=== PATIENT | female | born 1955 | race Caucasian/White ===

== ENCOUNTER 2020-05-06 00:37 | Inpatient (IN) ==
[2020-05-06] MEDS ORDERED: IOPAMIDOL 100 ML BOTTLE IV ONE (00:38)
[2020-05-06] MEDS ORDERED: FUROSEMIDE 40 MG/4 ML VIAL IV ONE ×3 (00:56→06:00)
--- NOTE | 2020-05-06 01:05 | Emergency Department Note ---
SOB HPI General Chief Complaint: Shortness of Breath/Dyspnea Mode of arrival: ambulatory History of Present Illness HPI Narrative: Narrative:64-year-old female comes in for 2-hour history of shortness of breath. Her found her Having nausea and vomiting with diaphoresis In the bathroom. No fever, she is cool and clammy.She is having some chest pressure but no true chest pain. No trouble urinating or with a bowel movement. She was initially sick about a week ago on 04/24/2020 but then she gradually got better as the week progressed but then tonight suddenly got worse again. I reviewed the notes from 04/24/2021 along with the studies. Her is concerned about a possible PE. She appears very ill and her gave me most of the history Her notes that she had a recent heart cath several months ago which was negative. Her heart doctor is Dr. Rhodes at [place].She has a known history of aortic insufficiency and diastolic heart failure Related Data Home Medications Medication Instructions Recorded Confirmed multivitamin 1 tab PO QDAY 08/16/15 05/06/20 levothyroxine 125 mcg capsule 137 mcg PO QDAY cap 07/16/17 05/06/20 metoprolol succinate 50 mg 50 mg PO BID 05/25/19 05/06/20 tablet,extended release 24 hr omeprazole 20 mg capsule,delayed 20 mg PO QDAY 05/25/19 05/06/20 release furosemide 20 mg PO DAILY 05/06/20 05/06/20 Previous Rx's Medication Instructions Recorded duloxetine 30 mg capsule,delayed 60 mg PO QDAY #60 cap 02/18/20 release cevimeline 30 mg capsule 1 cap PO TID #90 cap 02/29/20 hydroxychloroquine 200 mg tablet See Rx Instructions .ROUTE 02/29/20 .COMPLEX #180 tab diclofenac sodium 1 % topical gel See Rx Instructions .ROUTE 04/05/20 .COMPLEX #100 g ondansetron HCl [Zofran] 8 mg PO Q8H PRN #10 tab 04/24/20 Allergies Allergy/AdvReac Type Severity Reaction Status Date / Time codeine AdvReac Intermediate Hives Verified 04/24/20 07:59 gabapentin AdvReac Agitated Verified 04/24/20 07:59 Review of Systems ROS ROS Narrative: Narrative: All systems ED: reviewed and negative except as stated. PFSH Narrative Patient History Narrative: Narrative: Medical/Surgical/Family History All Active Problems (Updated 05/06/20 @ 02:01 by Madi Anguiano MD) CHF (congestive heart failure) (Acute) Sprain and strain of wrist (Acute) Asthma exacerbation (Acute) Headache, migraine (Acute) Restrictive lung disease (Acute) Headache (Acute) Polyarthralgia (Acute) Neck pain (Acute) Shingles (Acute) Osteoarthritis (Acute) Left knee pain (Chronic) Encounter for long-term current use of other high-risk medications (Acute) Trochanteric bursitis (Acute) Sjogren's syndrome (Acute) Encounter for long-term (current) use of other high-risk medications (Chronic) Rheumatoid arthritis (Acute) Rheumatic disease (Chronic) Disorder of skin and subcutaneous tissue (Chronic) Sicca syndrome (Chronic) Rotator cuff syndrome (Chronic) Myalgia and myositis (Chronic) Bursitis (Chronic) Generalized osteoarthritis (Chronic) Inflammatory polyarthropathy (Chronic) Hx of tonsillectomy (Chronic) History of appendectomy (Chronic) History of lymph node biopsy (Chronic) History of thoracotomy (Chronic) History of thoracic outlet syndrome (Chronic) Hyperlipidemia (Chronic) Hypothyroidism (Chronic) Migraine headache (Chronic) Radiculopathy (Chronic) Thoracic outlet syndrome (Chronic) Vertigo (Chronic) Von Willebrand factor autoantibody present (Chronic) Hodgkin lymphoma (Chronic) Fibromyalgia (Acute) Polyarticular arthritis (Chronic) Foot pain (Chronic) Knee pain (Chronic) Hand pain (Chronic) Medical History (Updated 05/06/20 @ 02:01 by Madi Anguiano MD) Breast implant in situ (Acute) Bursitis (Chronic) De Quervain's syndrome (tenosynovitis) (Suspected) Disorder of skin and subcutaneous tissue (Chronic) Encounter for long-term (current) use of other high-risk medications (Chronic) Encounter for long-term current use of other high-risk medications (Acute) Fibromyalgia (Acute) Foot pain (Chronic) Generalized osteoarthritis (Chronic) Hand pain (Chronic) Headache (Acute) Hodgkin lymphoma (Chronic) Hyperlipidemia (Chronic) Hypothyroidism (Chronic) Inflammatory polyarthropathy (Chronic) Knee pain (Chronic) Left knee pain (Chronic) Migraine headache (Chronic) Myalgia and myositis (Chronic) Neck pain (Acute) Osteoarthritis (Acute) Polyarthralgia (Acute) Polyarticular arthritis (Chronic) Radiculopathy (Chronic) Restrictive lung disease (Acute) Rheumatic disease (Chronic) Rheumatoid arthritis (Acute) Rotator cuff syndrome (Chronic) Shingles (Acute) Sicca syndrome (Chronic) Sjogren's syndrome (Acute) Thoracic outlet syndrome (Chronic) Trochanteric bursitis (Acute) Vertigo (Chronic) Von Willebrand factor autoantibody present (Chronic) Surgical History History of appendectomy (Chronic) 1972 History of lymph node biopsy (Chronic) 1996 History of thoracic outlet syndrome (Chronic) 2008 History of thoracotomy (Chronic) 1998 Hx of tonsillectomy (Chronic) 1972 Family History Grandmother Asthma Mother Malignant neoplasm Daughter Non-specific colitis Father Hypertension Brother Cerebrovascular accident (CVA) Sister Malignant neoplasm Social History Smoking Status: Never smoker Alcohol Intake Frequency: a few times a month Substance Use: does not use Exam Narrative Narrative: Narrative:Diaphoretic ill-appearing. Normocephalic atraumatic. Conjunctive are clear sclerae white nonicteric. No nasal discharge congestion. She is hypoxic and now is requiring oxygen via nasal cannula 2 and half liters. Oropharynx is pink and moist. Neck is supple without lymphadenopathy thyromegaly. Heart is regular rate and rhythm no murmur appreciated. Lungs with coarse rales and wheezes - Productive cough noted. Abdomen soft nontender nondistended. No pedal edema. +2 posterior tibial pulse. Course Vital Signs Vital signs: Vital Signs Temperature 94.6 F L 05/06/20 00:37 Pulse Rate 102 H 05/06/20 00:37 Respiratory Rate 19 05/06/20 00:37 Blood Pressure 164/79 05/06/20 00:37 Pulse Oximetry (%) 93 05/06/20 00:37 Temperature 95.5 F L 05/06/20 03:47 Pulse Rate 90 05/06/20 03:47 Respiratory Rate 20 05/06/20 03:47 Blood Pressure 136/76 05/06/20 03:33 Pulse Oximetry (%) 100 05/06/20 03:47 MDM MDM Narrative Medical decision making narrative: Narrative:Sudden onset shortness of breath with diaphoresis nausea and vomiting. Differential diagnosis includes Pulmonary emboli versus Pneumonia versus flash pulmonary edema/CHF exacerbation. She does not have a history of COPD or significant asthma, But she does have cancer history as well as autoimmune disease history Which puts her at higher risk for blood clot. Ordered laboratory and chest x-ray. Chest x-ray was unrevealing except for possible pneumonia. CT angiogram was ordered follow-up. EKG similarly shows left bundle branch block but this is not new.Start DuoNeb treatment along with continued nasal cannula oxygen. Furosemide [address] angiogram shows significant CHF exacerbation. This is new in the setting of recent heart cath several months ago which was okay. She had known diastolic dysfunction history as well as previous aortic insufficiency. We will put in a temperature probe Bone to monitor ins and outs. Troponin is normal. However given the scenario we will repeat that And get a second set At approximately 2 and half hours after this episode started- The first troponin was done approximately 1 hour after the episode Repeat troponin was again normal. Discussed scenario with Dr. Morelos, our hospitalist. He agreed to accept patient. Transition Orders written by me Lab Data Lab results reviewed: Yes I reviewed the patient's lab results. Result diagrams: 05/06/20 01:30 05/06/20 01:30 Labs: Lab Results 05/06/20 05/06/20 05/06/20 Range/Units 01:30 01:30 01:30 WBC 10.2 (4.50-11.00) K/mcL RBC 4.48 (3.59-5.38) M/mcL Hgb 13.7 (11.2-15.7) g/dL Hct 40.1 (34.1-44.9) % POC Hct (36.0-48.0) % MCV 89.5 (80.0-100.0) fL MCH 30.6 (26.0-34.0) pg MCHC 34.2 (31.0-36.0) g/dL RDW 13.3 (11.5-14.5) % Plt Count 402 (140-440) K/mcL MPV 9.7 (7.4-10.4) fL Gran % 59.8 (38.0-78.0) % Lymph % (Auto) 29.0 (15.5-49.0) % Union % (Auto) 7.1 (1.0-12.0) % Eos % (Auto) 3.8 (0.0-7.0) % Baso % (Auto) 0.3 (0.0-2.0) % Gran # 6.07 (1.80-8.00) K/mcL Lymph # (Auto) 2.94 (1.50-4.80) K/mcL Union # (Auto) 0.72 (0.10-0.90) K/mcL Eos # (Auto) 0.39 (0.00-0.70) K/mcL Baso # (Auto) 0.03 (0.00-0.30) K/mcL VBG Lactic Acid 1.3 (0.5-2.0) mmol/L POC Sodium (133-145) mmol/L Sodium 131 L (133-145) mmol/L POC Potassium (3.3-5.1) mmol/L Potassium 3.6 (3.3-5.1) mmol/L POC Chloride (96-108) mmol/L Chloride 95 L (96-108) mmol/L Carbon Dioxide 20 L (22-30) mmol/L POC Total CO2 (22-30) mmol/L Anion Gap 16.0 (8-16) POC BUN (8-23) mg/dl BUN 16 (8-23) mg/dl Creatinine 0.9 (0.6-1.1) mg/dl POC Creatinine (0.6-1.1) mg/dl GFR Calculation 68 Glucose 143 H (70-105) mg/dL POC Glucose (70-105) mg/dL Calcium 9.3 (8.6-10.4) mg/dl POC WB Ioniz Calcium (1.16-1.32) mmol/L Total Bilirubin 0.3 (0.0-1.0) mg/dL AST 33 (0-37) U/l ALT 26 (0-40) U/l Alkaline Phosphatase 102 (39-117) U/L Troponin T (0-0.03) ng/ml NT-Pro-B Natriuret Pep 242.6 H (0-125) pg/ml Total Protein 7.1 (5.9-8.4) gm/dL Albumin 4.3 (3.2-5.2) gm/dL Globulin 2.8 (2.2-3.7) gm/dL Albumin/Globulin Ratio 1.5 (1.0-2.3) 05/06/20 05/06/20 05/06/20 Range/Units 01:30 01:30 03:00 WBC (4.50-11.00) K/mcL RBC (3.59-5.38) M/mcL Hgb (11.2-15.7) g/dL Hct (34.1-44.9) % POC Hct 43.0 (36.0-48.0) % MCV (80.0-100.0) fL MCH (26.0-34.0) pg MCHC (31.0-36.0) g/dL RDW (11.5-14.5) % Plt Count (140-440) K/mcL MPV (7.4-10.4) fL Gran % (38.0-78.0) % Lymph % (Auto) (15.5-49.0) % Union % (Auto) (1.0-12.0) % Eos % (Auto) (0.0-7.0) % Baso % (Auto) (0.0-2.0) % Gran # (1.80-8.00) K/mcL Lymph # (Auto) (1.50-4.80) K/mcL Union # (Auto) (0.10-0.90) K/mcL Eos # (Auto) (0.00-0.70) K/mcL Baso # (Auto) (0.00-0.30) K/mcL VBG Lactic Acid (0.5-2.0) mmol/L POC Sodium 131 L (133-145) mmol/L Sodium (133-145) mmol/L POC Potassium 3.4 (3.3-5.1) mmol/L Potassium (3.3-5.1) mmol/L POC Chloride 99 (96-108) mmol/L Chloride (96-108) mmol/L Carbon Dioxide (22-30) mmol/L POC Total CO2 22 (22-30) mmol/L Anion Gap (8-16) POC BUN 18 (8-23) mg/dl BUN (8-23) mg/dl Creatinine (0.6-1.1) mg/dl POC Creatinine 0.8 (0.6-1.1) mg/dl GFR Calculation Glucose (70-105) mg/dL POC Glucose 145 H (70-105) mg/dL Calcium (8.6-10.4) mg/dl POC WB Ioniz Calcium 1.13 L (1.16-1.32) mmol/L Total Bilirubin (0.0-1.0) mg/dL AST (0-37) U/l ALT (0-40) U/l Alkaline Phosphatase (39-117) U/L Troponin T < 0.01 < 0.01 (0-0.03) ng/ml NT-Pro-B Natriuret Pep (0-125) pg/ml Total Protein (5.9-8.4) gm/dL Albumin (3.2-5.2) gm/dL Globulin (2.2-3.7) gm/dL Albumin/Globulin Ratio (1.0-2.3) Radiology Data Radiology results reviewed: Yes I reviewed the patient's radiology results. Radiology results narrative: Chest x-ray shows density bilateral lower lungs. CHF versus Pneumonia. CT angiogram Of the chest was ordered CT angiogram shows no Emboli but she does have significant CHF exacerbation which accounts for her shortness of breath EKG Data EKG #1: EKG attestation: Yes I reviewed and interpreted this EKG. EKG results narrative: EKG shows a left bundle branch block with 1 PVC. I do not see evidence of ACS. Her EKG from last week looked similar With left bu ndle branch block but I do not have prior For comparison Discharge Plan Patient/Caregiver Discharge Instructions Pt seen by COST SPECIALIST/PA only: No Clinical Impression: CHF (congestive heart failure) Qualifiers: Heart failure type: combined systolic and diastolic Heart failure chronicity: acute on chronic Qualified Code(s): I50.43 - Acute on chronic combined systolic (congestive) and diastolic (congestive) heart failure Patient Disposition: Xfer As Inpt ([facility]) Condition: Serious Follow up with: Myra Arias MD [Primary Care Provider] - Prescriptions: No Action duloxetine 30 mg capsule,delayed release(DR/EC) 60 mg PO QDAY Qty: 60 RF: 3 cevimeline 30 mg capsule 1 cap PO TID Qty: 90 RF: 2 hydroxychloroquine 200 mg tablet See Rx Instructions .ROUTE .COMPLEX Qty: 180 RF: 0 diclofenac sodium 1 % gel See Rx Instructions .ROUTE .COMPLEX Qty: 100 RF: 0 multivitamin 1 tab PO QDAY RF: 0 levothyroxine 125 mcg capsule 137 mcg PO QDAY RF: 0 metoprolol succinate 50 mg tablet extended release 24 hr 50 mg PO BID RF: 0 omeprazole 20 mg capsule,delayed release(DR/EC) 20 mg PO QDAY RF: 0 ondansetron HCl [Zofran] 8 mg tablet 8 mg PO Q8H PRN (Reason: nausea and vomiting) Qty: 10 RF: 0 furosemide 20 mg tablet 20 mg PO DAILY RF: 0
[2020-05-06] MEDS ORDERED: ONDANSETRON 4 MG/2 ML VIAL ONE (01:08)
[2020-05-06] MEDS ORDERED: IPRATROPIUM/ALBUTEROL 3 ML AMPUL.NEB NEB ONE (01:36)
[2020-05-06] MEDS ORDERED: ONDANSETRON 4 MG/2 ML VIAL IV ONE (01:36)
[2020-05-06 01:47] LABS: POC Blood Urea Nitrogen 18 mg/dl (8-23); POC CO2 22 mmol/L (22-30); POC Calcium, Ionized 1.13 mmol/L (1.16-1.32); POC Chloride 99 mmol/L (96-108); POC Creatinine 0.8 mg/dl (0.6-1.1); POC Glucose, Random 145 mg/dL (70-105); POC Potassium 3.4 mmol/L (3.3-5.1); POC Sodium 131 mmol/L (133-145)
[2020-05-06 01:55] LABS: Basophils # (Auto) 0.03 K/mcL (0.00-0.30); Basophils % (Auto) 0.3 % (0.0-2.0); Eosinophils # (Auto) 0.39 K/mcL (0.00-0.70); Eosinophils % (Auto) 3.8 % (0.0-7.0); Granulocytes % (Auto) 59.8 % (38.0-78.0); Hematocrit 40.1 % (34.1-44.9); Hemoglobin 13.7 g/dL (11.2-15.7); Lymphocytes # (Auto) 2.94 K/mcL (1.50-4.80); Mean Cell Volume 89.5 fL (80.0-100.0); Mean Corpuscular HGB Conc 34.2 g/dL (31.0-36.0); Mean Platelet Volume 9.7 fL (7.4-10.4); Monocytes # (Auto) 0.72 K/mcL (0.10-0.90); Monocytes % (Auto) 7.1 % (1.0-12.0); Platelet Count 402 K/mcL (140-440); RBC 4.48 M/mcL (3.59-5.38); Red Cell Distribution Width 13.3 % (11.5-14.5); WBC 10.2 K/mcL (4.50-11.00)
[2020-05-06 02:06] LABS: proBNP 242.6 pg/ml (0-125)
[2020-05-06 02:08] LABS: ALT/SGPT 26 U/l (0-40); AST/SGOT 33 U/l (0-37); Albumin 4.3 gm/dL (3.2-5.2); Albumin/Globulin Ratio 1.5 (1.0-2.3); Alkaline Phosphatase 102 U/L (39-117); Bilirubin,Total 0.3 mg/dL (0.0-1.0); Blood Urea Nitrogen 16 mg/dl (8-23); Calcium 9.3 mg/dl (8.6-10.4); Carbon Dioxide 20 mmol/L (22-30); Chloride 95 mmol/L (96-108); Globulin 2.8 gm/dL (2.2-3.7); Glomerular Filtration Rate 68; Glucose 143 mg/dL (70-105)
--- NOTE | 2020-05-06 02:25 | XRay Report ---
CLINICAL INFORMATION: SOB COMPARISON: Two view chest x-ray 04/24/2020 FINDINGS: Cardiomediastinal silhouette remains normal. The pulmonary vessels, however, are now moderately congested. There is moderate interstitial edema throughout both lungs. Moderate increased density at both lung bases likely represents effusion layering over the lung bases within this patient in supine position. IMPRESSION: Moderate CHF Interpreted and Authenticated by: Mac Frank 05/06/20
[2020-05-06] MEDS ORDERED: ONDANSETRON 4 MG/2 ML VIAL IV PRN ×2 (03:49→07:01)
--- NOTE | 2020-05-06 04:05 | Cat Scan Report ---
CLINICAL INFORMATION: Shortness of breath COMPARISON: CT angiogram chest 06/19/[address] without contrast 01/05/2019 TECHNIQUE: ml of Isovue-370 were injected intravenously. Using SmartPrep to maximize pulmonary artery opacification, .625mm helical slices were obtained from the lung apices through the lung bases. Following reconstruction, 2.5 mm sagittal, coronal, and axial reformations were processed. The exam was reviewed at mediastinal, lung, and bone windows. The exam was performed using radiation dose optimization techniques including, but not limited to, automated exposure control, adjustment of the mA and/or kV according to patient size and use of iterative reconstruction technique. FINDINGS: Diffuse enlargement of all the pulmonary arteries appreciated. There are well opacified, however, without evidence of embolus. There is moderate groundglass edema in a peribronchovascular distribution throughout both upper, lower and right middle lobes. This is most prominent in the paramediastinal upper lobe. Moderate interstitial edema throughout the interlobular septa is most prominent in the lower lobe regions. Moderate left and small right pleural effusions are present. There are no nodules. Mediastinal windows show mild cardiomegaly with moderate left ventricular dilatation at this is increased from prior CT. There is no calcific plaque in the coronary arteries. The thoracic aorta is normal in diameter. There is no adenopathy in the mediastinal hilar or axillary regions. Esophagus shows small hiatal hernia. Thyroid is diminutive but no abnormality in this region. 2 cm lymph node in the inferior right axilla demonstrates long-term stability and contains central fat compatible with benignity. Bones and soft tissues the chest wall unremarkable. Bilateral calcified breast implants show radiographic stability. Images through the superior abdomen show no abnormality. IMPRESSION: 1. No evidence of pulmonary embolus. 2. Moderate congestive heart failure 3. Moderate left and small right pleural effusions. 4. Small hiatal hernia - stable Interpreted and Authenticated by: Mac Frank 05/06/20
[2020-05-06] MEDS ORDERED: ACETAMINOPHEN 650 MG/65 ML BOTTLE IV PRN (07:01)
[2020-05-06] MEDS ORDERED: MELATONIN 3 MG TABLET PO PRN ×2 (07:01→20:34)
[2020-05-06] MEDS ORDERED: ONDANSETRON HCL 8 MG PO PRN (07:01)
[2020-05-06] MEDS ORDERED: ONDANSETRON 4 MG ODT TABLET SL PRN (07:01)
[2020-05-06] MEDS ORDERED: BISACODYL 10 MG SUPP.RECT PR PRN (07:01)
[2020-05-06] MEDS ORDERED: MAGNESIUM SULFATE 2 GM/50 ML BAG IV PRN (07:01)
[2020-05-06] MEDS ORDERED: POLYETHYLENE GLYCOL 3350 17 GM PACKET PO PRN (07:01)
[2020-05-06] MEDS ORDERED: ACETAMINOPHEN 325 MG TABLET PO PRN (07:01)
[2020-05-06] MEDS ORDERED: NON FORMULARY MEDICATION 1 DOSE MISCELL (Melatonin 10 MG) PO PRN (07:01)
[2020-05-06] MEDS ORDERED: POTASSIUM CHLORIDE 20 MEQ PACKET PO PRN (07:01)
--- NOTE | 2020-05-06 07:08 | Internal Med History&Physical ---
HPI History of Present Illness Patient information: Note initiated : 05/06/20 at 7:05 am Service Date, if different from initiated Date: [] Patient: Selena Kenny a 64 y/o F admitted on 05/06/20 for Shortness of breath. Chief Complaint: Shortness of breath History of present illness: Ms. Kenny is a 64 year old F with a history of rheumatoid arthritis/restrictive lung disease/VWD/AR/AI who presents to the ER with rapid onset worsening shortness of breath/cough, diaphoresis early this morning. She was in a near baseline state before she went to bed. Although she has been noticing increasing cough over the last few weeks along with lower extremity swelling and dyspnea initially on exertion limiting her exercise tolerance. However with abrupt onset of symptoms along with associated diaphoresis chest pressure severe shortness of breath she presents to the ER. She was evaluated for a similar episode of wheezing shortness of breath on 04/24. Work-up was unremarkable with a negative chest x-ray improved with duo nebs was started on doxycycline/prednisone. Kovic was negative During this visit work-up in the ER was consistent with flash pulmonary edema. Patient was started on diuretics and subsequently hospitalist service was con sulted for admission. Bone's catheter was placed At the time of my evaluation early this morning patient is feeling much improved after she diuresed over 1500 cc. She endorses orthopnea, cough remarkably improved. Denies lightheadedness, dizziness, chest pain or diaphoresis at this time. Reviewing her past medical records patient's echocardiographer is Dr. Lonnie Rhodes at [facility] and her last echo revealed 55% EF with AI. Repeat echo pending, she also follows up with Dr. Conklin bowling ball patcher for RA She denies associated fever, productive sputum or sick contacts. She denies hi gh salt diet intake, but endorses to taking diclofenac for inflammatory polyarthritis. She has been on scheduled Lasix 20/40 alternating daily. Review of systems 10 point review system was performed and is negative except for ones discussed above [facility] Medical History (Updated 05/06/20 @ 02:01 by Madi Anguiano MD) Breast implant in situ (Acute) Bursitis (Chronic) De Quervain's syndrome (tenosynovitis) (Suspected) Disorder of skin and subcutaneous tissue (Chronic) Encounter for long-term (current) use of other high-risk medications (Chronic) Encounter for long-term current use of other high-risk medications (Acute) Fibromyalgia (Acute) Foot pain (Chronic) Generalized osteoarthritis (Chronic) Hand pain (Chronic) Headache (Acute) Hodgkin lymphoma (Chronic) Hyperlipidemia (Chronic) Hypothyroidism (Chronic) Inflammatory polyarthropathy (Chronic) Knee pain (Chronic) Left knee pain (Chronic) Migraine headache (Chronic) Myalgia and myositis (Chronic) Neck pain (Acute) Osteoarthritis (Acute) Polyarthralgia (Acute) Polyarticular arthritis (Chronic) Radiculopathy (Chronic) Restrictive lung disease (Acute) Rheumatic disease (Chronic) Rheumatoid arthritis (Acute) Rotator cuff syndrome (Chronic) Shingles (Acute) Sicca syndrome (Chronic) Sjogren's syndrome (Acute) Thoracic outlet syndrome (Chronic) Trochanteric bursitis (Acute) Vertigo (Chronic) Von Willebrand factor autoantibody present (Chronic) Surgical History History of appendectomy (Chronic) 1971 History of lymph node biopsy (Chronic) 1996 History of thoracic outlet syndrome (Chronic) 2007 History of thoracotomy (Chronic) 1998 Hx of tonsillectomy (Chronic) 1972 Family History Grandmother Asthma Mother Malignant neoplasm Daughter Non-specific colitis Father Hypertension Brother Cerebrovascular accident (CVA) Sister Malignant neoplasm Social History (Updated 11/24/19 @ 09:38 by Isaac Conklin MD) marital status: education level: college occupational status: employed smoking status: Never smoker alcohol intake frequency: a few times a month substance use type: does not use MEDS/ALLERGIES Home Medications and Allergies Home Medications Medication Instructions Recorded Confirmed Type multivitamin 1 tab PO QDAY 08/16/15 05/06/20 History levothyroxine 125 mcg capsule 137 mcg PO QDAY cap 07/16/17 05/06/20 History metoprolol succinate 50 mg 50 mg PO BID 05/25/19 05/06/20 History tablet,extended release 24 hr omeprazole 20 mg capsule,delayed 20 mg PO QDAY 05/25/19 05/06/20 History release duloxetine 30 mg capsule,delayed 60 mg PO QDAY #60 cap 02/18/20 05/06/20 Rx release cevimeline 30 mg capsule 1 cap PO TID #90 cap 02/29/20 05/06/20 Rx diclofenac sodium 1 % topical gel See Rx Instructions .ROUTE 04/05/20 05/06/20 Rx .COMPLEX #100 g ondansetron HCl [Zofran] 8 mg PO Q8H PRN #10 tab 04/24/20 05/06/20 Rx furosemide 20 mg PO DAILY 05/06/20 05/06/20 History hydroxychloroquine 200 mg PO BID 05/06/20 05/06/20 History melatonin 10 mg PO HS PRN 05/06/20 05/06/20 History Allergies Allergy/AdvReac Type Severity Reaction Status Date / Time codeine AdvReac Mild Hives Verified 05/06/20 07:05 gabapentin AdvReac Mild Agitated Verified 05/06/20 07:05 EXAM Constitutional Vitals: Temp Pulse Resp BP Pulse Ox 97.2 F 94 H 19 120/74 100 05/06/20 06:01 05/06/20 06:01 05/06/20 06:01 05/06/20 06:01 05/06/20 06:01 No anxiety, alert Head normocephalic Oral cavity moist No ear nose discharge Eye movement symmetrical S1-S2 improved tachycardia on telemetry Nonlabored breathing Nondistended abdomen Lower extremity lymphedema improving, no cyanosis clubbing or joint swelling Skin no suspicious lesion Psych no hallucination, cooperative Neuro normal higher function DATA Data Completed and Pending Labs on day of discharge: Labs from last 24 hours 05/06/20 05/06/20 05/06/20 03:00 01:30 01:30 WBC RBC Hgb Hct POC Hct 43.0 MCV MCH MCHC RDW Plt Count MPV Gran % Lymph % (Auto) Barry % (Auto) Eos % (Auto) Baso % (Auto) Gran # Lymph # (Auto) Barry # (Auto) Eos # (Auto) Baso # (Auto) VBG Lactic Acid POC Sodium 131 L Sodium POC Potassium 3.4 Potassium POC Chloride 99 Chloride Carbon Dioxide POC Total CO2 22 Anion Gap POC BUN 18 BUN Creatinine POC Creatinine 0.8 GFR Calculation Glucose POC Glucose 145 H Calcium POC WB Ioniz Calcium 1.13 L Total Bilirubin AST ALT Alkaline Phosphatase Troponin T < 0.01 < 0.01 NT-Pro-B Natriuret Pep Total Protein Albumin Globulin Albumin/Globulin Ratio 05/06/20 05/06/20 05/06/20 01:30 01:30 01:30 WBC 10.2 RBC 4.48 Hgb 13.7 Hct 40.1 POC Hct MCV 89.5 MCH 30.6 MCHC 34.2 RDW 13.3 Plt Count 402 MPV 9.7 Gran % 59.8 Lymph % (Auto) 29.0 Barry % (Auto) 7.1 Eos % (Auto) 3.8 Baso % (Auto) 0.3 Gran # 6.07 Lymph # (Auto) 2.94 Barry # (Auto) 0.72 Eos # (Auto) 0.39 Baso # (Auto) 0.03 VBG Lactic Acid 1.3 POC Sodium Sodium 131 L POC Potassium Potassium 3.6 POC Chloride Chloride 95 L Carbon Dioxide 20 L POC Total CO2 Anion Gap 16.0 POC BUN BUN 16 Creatinine 0.9 POC Creatinine GFR Calculation 68 Glucose 143 H POC Glucose Calcium 9.3 POC WB Ioniz Calcium Total Bilirubin 0.3 AST 33 ALT 26 Alkaline Phosphatase 102 Troponin T NT-Pro-B Natriuret Pep 242.6 H Total Protein 7.1 Albumin 4.3 Globulin 2.8 Albumin/Globulin Ratio 1.5 A/P Narrative A/P Narrative: * Acute decompensated heart failure-likely diastolic. High probability valvular dysfunction in the setting of connective tissue disorder/AI. Await echo cardiogram/initiate diuresis/optimize CHF management based on echo finding. Will discuss with patient's echocardiographer Dr. Lonnie Rhodes on completion of echo for further treatment guidelines * Flash Pulmonary edema-initiated aggressive diuresis, high probability valvular dysfunction in the setting of normal EF * Hypoxic respiratory failure-secondary pulmonary edema. Continue supplemental oxygen and wean as tolerated. * Hypothyroidism continue home dose thyroxine * Anxiety disorder on Cymbalta * History of RA on hydroxychloroquine * Full code * Prophylaxis ambulation Plan * Inpatient admission * Aggressive diuresis * Echocardiogram * Cardiology consult * Pre-existing medical condition management on home meds Time Spent With Patient Time: Total time spent is greater than 50% in coordination of care (as documented) at patient's floor/unit and/or counseling patient: QUALITY VTE Deep Vein Thrombosis/Pulmonary Embolism Present on Admission: No
[2020-05-06] MEDS ORDERED: DICLOFENAC SODIUM SCH (07:15)
[2020-05-06] MEDS: LEVOTHYROXINE 25 MCG TABLET PO SCH (07:37)
[2020-05-06] MEDS: LEVOTHYROXINE SODIUM 112 MCG TABLET PO SCH (07:37)
[2020-05-06] MEDS: OMEPRAZOLE 20 MG CAPSULE PO SCH (07:37)
[2020-05-06] MEDS: 0.9 % SODIUM CHLORIDE 10 ML SYRINGE IV SCH ×3 (07:38→20:41)
[2020-05-06] MEDS ORDERED: FUROSEMIDE 40 MG/4 ML VIAL IV SCH (08:00)
[2020-05-06] MEDS ORDERED: NON FORMULARY MEDICATION 1 DOSE MISCELL (Multivitamin 1 TAB) PO SCH (09:00)
[2020-05-06] MEDS ORDERED: HEPARIN 5,000 UNIT/ML VIAL SQ SCH (09:00)
[2020-05-06] MEDS ORDERED: LEVOTHYROXINE 137 MCG PO SCH (09:00)
[2020-05-06] MEDS: METOPROLOL SUCCINATE 50 MG TAB.XL.24H PO SCH ×2 (09:28→20:41)
[2020-05-06] MEDS: DULoxetine 30 MG CAPSULE PO SCH (09:30)
[2020-05-06] MEDS: DOCUSATE SODIUM 100 MG CAPSULE PO SCH ×2 (09:31→20:42)
[2020-05-06] MEDS: THIAMINE 100 MG TABLET PO SCH (09:32)
[2020-05-06] MEDS: CEVIMELINE 30 MG PO SCH ×3 (09:33→20:42)
[2020-05-06] MEDS: HYDROXYCHLOROQUINE 200 MG TABLET PO SCH ×2 (09:33→20:41)
--- NOTE | 2020-05-06 13:56 | Ultrasound Report ---
CLINICAL INFORMATION: R/O renal artery stenosis COMPARISON: None. FINDINGS: Both kidneys are normal and symmetric in size, position and configuration: The right is 10 x 4.8 cm and the left is 10 x 4.7 cm. Parenchymal echotexture is mildly elevated bilaterally. There are no focal renal lesions (i.E. no stones cysts or solid lesions. (No hydronephrosis. Urinary bladder contains minimal urine at no gross bladder lesion IMPRESSION: Mild hyperechoic kidneys suggestive of minimal medical renal disease Interpreted and Authenticated by: Mac Frank 05/06/20
--- NOTE | 2020-05-06 13:57 | Ultrasound Report ---
CLINICAL INFORMATION: R/O renal artery stenosis COMPARISON: None. FINDINGS: See attached graphs IMPRESSION: The main and segmental renal arteries to each kidney are patent. No significant stenoses identified. Resistive indices are normal bilaterally 0.69 Interpreted and Authenticated by: Mac Frank 05/06/20
[2020-05-06] MEDS: FUROSEMIDE 40 MG TABLET PO SCH (16:32)
[2020-05-06] MEDS ORDERED: ALBUTEROL SULFATE 200 PUFF INHALER INH PRN (17:35)
[2020-05-06] MEDS ORDERED: valACYclovir 500 MG TABLET PO PRN (20:25)
[2020-05-06] MEDS ORDERED: ELETRIPTAN 20 MG PO PRN (20:28)
[2020-05-06] MEDS: METOCLOPRAMIDE 10 MG TABLET PO SCH (20:41)
[2020-05-06] MEDS ORDERED: SENNOSIDES/DOCUSATE SODIUM 1 TAB TABLET PO SCH (21:00)
[2020-05-06] MEDS ORDERED: FLUTICASONE PROPIONATE SPRAY.NAS NS SCH (21:00)
[2020-05-07] MEDS: 0.9 % SODIUM CHLORIDE 10 ML SYRINGE IV SCH (05:27)
[2020-05-07 06:52] LABS: Hematocrit 34.9 % (34.1-44.9); Mean Cell Volume 91.6 fL (80.0-100.0); Mean Corpuscular HGB Conc 34.4 g/dL (31.0-36.0); Mean Platelet Volume 9.8 fL (7.4-10.4); Platelet Count 345 K/mcL (140-440); RBC 3.81 M/mcL (3.59-5.38); Red Cell Distribution Width 13.7 % (11.5-14.5); WBC 8.4 K/mcL (4.50-11.00)
[2020-05-07 07:06] LABS: Bilirubin,Direct < 0.2 mg/dL (0.0-0.3)
[2020-05-07 07:26] LABS: ALT/SGPT 22 U/l (0-40); AST/SGOT 30 U/l (0-37); Albumin 3.6 gm/dL (3.2-5.2); Albumin/Globulin Ratio 1.6 (1.0-2.3); Alkaline Phosphatase 78 U/L (39-117); Bilirubin,Total 0.5 mg/dL (0.0-1.0); Blood Urea Nitrogen 19 mg/dl (8-23); Calcium 8.3 mg/dl (8.6-10.4); Carbon Dioxide 23 mmol/L (22-30); Chloride 92 mmol/L (96-108); Globulin 2.3 gm/dL (2.2-3.7); Glomerular Filtration Rate 60; Glucose 89 mg/dL (70-105); Lactate Dehydrogenase 213 U/L (94-250); Phosphorous 4.1 mg/dL (2.7-4.5); Triglycerides 79 mg/dl (<150); Uric Acid 6.2 mg/dL (2.5-8.0)
[2020-05-07] MEDS: LEVOTHYROXINE SODIUM 112 MCG TABLET PO SCH (07:50)
[2020-05-07] MEDS: LEVOTHYROXINE 25 MCG TABLET PO SCH (07:50)
[2020-05-07] MEDS: OMEPRAZOLE 20 MG CAPSULE PO SCH (07:50)
[2020-05-07] MEDS: METOCLOPRAMIDE 10 MG TABLET PO SCH (07:51)
[2020-05-07] MEDS ORDERED: POTASSIUM CHLORIDE 10 MEQ TABLET PO SCH ×2 (08:00→09:00)
[2020-05-07 08:19] LABS: Eosinophils % (Manual) 2 % (0-7); Lymphocytes % 28 % (15-49); Monocytes % (Manual) 7 % (1-12); Platelet Estimate NORMAL (NORMAL); RBC Morphology NORMAL (NORMAL); Segmented Neutrophils % 63 % (38-78)
[2020-05-07] MEDS: THIAMINE 100 MG TABLET PO SCH (08:55)
[2020-05-07] MEDS: FUROSEMIDE 40 MG TABLET PO SCH (08:56)
[2020-05-07] MEDS: DULoxetine 30 MG CAPSULE PO SCH (08:56)
[2020-05-07] MEDS: DOCUSATE SODIUM 100 MG CAPSULE PO SCH (08:56)
[2020-05-07] MEDS: HYDROXYCHLOROQUINE 200 MG TABLET PO SCH (08:56)
[2020-05-07] MEDS: METOPROLOL SUCCINATE 50 MG TAB.XL.24H PO SCH (08:56)
[2020-05-07] MEDS: CEVIMELINE 30 MG PO SCH (08:56)
--- NOTE | 2020-05-07 09:59 | Discharge Summary ---
Discharge Provider Provider Patient information: Note initiated : 05/07/20 at 9:57 am Service Date, if different from initiated Date: [] Patient: Selena Kenny 64 y/o F admitted on 05/06/20 for Shortness of breath. Discharge diagnosis * Acute decompensated heart failure-combination of systolic/diastolic. Echo EF 45%, moderate AI. Case discussed with cardiology Dr. Lonnie Rhodes [facility]. Recommends continuation of diuretics/outpatient follow-up with cardiology on discharge. * Flash Pulmonary edema-rapid solution noted with aggressive diuresis. * Hypoxic respiratory failure-secondary pulmonary edema. Rapid resolution noted with diuresis. On room air. * Hypothyroidism continue home dose thyroxine * Anxiety disorder managed on home dose Cymbalta * History of RA managed on home dose hydroxychloroquine Brief hospital course Ms. Kenny is a 64 year old F with a history of rheumatoid arthritis/restrictive lung disease/VWD/AR/AI who presents to the ER with rapid onset worsening shortness of breath/cough, diaphoresis early this morning. She was in a near baseline state before she went to bed. Although she has been noticing increasing cough over the last few weeks along with lower extremity swelling and dyspnea initially on exertion limiting her exercise tolerance. However with abrupt onset of symptoms along with associated diaphoresis chest pressure severe shortness of breath she presents to the ER. She was evaluated for a similar episode of wheezing shortness of breath on 04/24. Work-up was unremarkable with a negative chest x-ray improved with duo nebs was started on doxycycline/prednisone. Kovic was negative During this visit work-up in the ER was consistent with flash pulmonary edema. Patient was started on diuretics and subsequently hospitalist service was consulted for admission. Bone's catheter was placed At the time of my evaluation early this morning patient is feeling much improved after she diuresed over 1500 cc. She endorses orthopnea, cough remarkably improved. Denies lightheadedness, dizziness, chest pain or diaphoresis at this time. Reviewing her past medical records patient's pulp drier is Dr. Lonnie Rhodes at [facility] and her last echo revealed 55% EF with AI. Repeat echo pending, she also follows up with Dr. Conklin outsole beveler for RA She denies associated fever, productive sputum or sick contacts. She denies high salt diet intake, but endorses to taking diclofenac for inflammatory polyarthritis. She has been on scheduled Lasix 20/40 alternating daily. 05/07-patient did remarkably well With aggressive diuresis with over 3000 cc net negative fluid balance. Echocardiogram revealed EF 45%. Moderate aortic insufficiency. Patient to follow-up with cardiology in 7 to 10 days on discharge. Continue diuretics beta-thomas. Date of admission: 05/06/20 04:20 Discharge date: 05/07/20 Primary care physician: Myra Arias Consults: 05/06/20 02:27 Consult to Physician [CONS] Stat Comment: Consulting Provider: Aditya Paiz Reason For Exam: Physician to Consult Discharge Meds Discharge Medications Home Medications multivitamin 1 tab PO QDAY 08/16/15 [History Confirmed 05/06/20 Last Taken 05/05/20 08:00] levothyroxine 125 mcg capsule 137 mcg PO QDAY cap 07/16/17 [History Confirmed 05/06/20 Last Taken 05/05/20 07:00] metoprolol succinate 50 mg tablet,extended release 24 hr 50 mg PO BID 05/25/19 [History Confirmed 05/06/20 Last Taken 05/05/20 19:00] omeprazole 20 mg capsule,delayed release 20 mg PO QDAY 05/25/19 [History Confirmed 05/06/20 Last Taken 05/05/20 08:00] duloxetine 30 mg capsule,delayed release 60 mg PO QDAY #60 cap 02/18/20 [Rx Confirmed 05/06/20 Last Taken 05/05/20 08:00] cevimeline 30 mg capsule 1 cap PO TID #90 cap 02/29/20 [Rx Confirmed 05/06/20 Last Taken 05/05/20 18:00] diclofenac sodium 1 % topical gel See Rx Instructions .ROUTE .COMPLEX #100 g 04/05/20 [Rx Confirmed 05/06/20 Last Taken 05/05/20 08:00] ondansetron HCl [Zofran] 8 mg PO Q8H PRN #10 tab 04/24/20 [Rx Confirmed 05/06/20 Last Taken 05/05/20 08:00] albuterol sulfate [Ventolin HFA] 2 puff INHALATION Q4H PRN 05/06/20 [History Confirmed 05/06/20 Last Taken 05/05/20 20:00] eletriptan 20 mg PO PRN PRN MDD 4 05/06/20 [History Confirmed 05/06/20 Last Taken 05/03/20] fluticasone propionate 2 spray INTRANASAL QHS 05/06/20 [History Confirmed 05/06/20 Last Taken 05/02/20] furosemide 20 mg PO DAILY 05/06/20 [History Confirmed 05/06/20 Last Taken 05/05/20 08:00] hydroxychloroquine 200 mg PO BID 05/06/20 [History Confirmed 05/06/20 Last Taken 05/05/20 19:00] melatonin 10 mg PO HS PRN 05/06/20 [History Confirmed 05/06/20 Last Taken Unknown] metoclopramide HCl 10 mg PO BID 05/06/20 [History Confirmed 05/06/20 Last Taken 04/30/20] potassium chloride 10 meq PO QDAY 05/06/20 [History Confirmed 05/06/20 Last Taken 05/05/20 08:00] valacyclovir 2,000 mg PO QDAY PRN 05/06/20 [History Confirmed 05/06/20 Last Taken 04/22/20] furosemide 40 mg PO DAILY #60 tab 05/07/20 [Rx Last Taken Unknown] potassium chloride 10 meq PO [facility] #60 tab 05/07/20 [Rx Last Taken Unknown] COURSE Hospital Course Hospital course: . Discharge diagnosis: . Time Spent with Patient Time attestation: Total time spent providing and/or coordinating discharge services: EXAM Constitutional Vitals: Temp Pulse Resp BP Pulse Ox 99.1 F H 79 19 136/69 96 05/07/20 04:01 05/07/20 04:01 05/07/20 08:31 05/07/20 08:31 05/07/20 06:01 Discharge Data Data Completed and Pending Labs on day of discharge: Labs from last 24 hours 05/07/20 05/07/20 05/06/20 05:05 05:05 01:30 WBC 8.4 RBC 3.81 Hgb 12.0 Hct 34.9 MCV 91.6 MCH 31.5 MCHC 34.4 RDW 13.7 Plt Count 345 MPV 9.8 Total Counted 100 Seg Neutrophils % 63 Band Neutrophils % Not Reportable Lymphocytes % 28 Monocytes % (Manual) 7 Eosinophils % (Manual) 2 Platelet Estimate Normal RBC Morphology Normal ESR 24 H Sodium 128 L Potassium 4.5 Chloride 92 L Carbon Dioxide 23 Anion Gap 13.0 BUN 19 Creatinine 1.0 GFR Calculation 60 Glucose 89 Uric Acid 6.2 Calcium 8.3 L Phosphorus 4.1 Magnesium 2.1 Total Bilirubin 0.5 Direct Bilirubin < 0.2 GGT 25 AST 30 ALT 22 Alkaline Phosphatase 78 Lactate Dehydrogenase 213 Total Protein 5.9 Albumin 3.6 Globulin 2.3 Albumin/Globulin Ratio 1.6 Triglycerides 79 Preliminary micro results at discharge 05/06/20 01:30 Blood Culture - Preliminary Blood Discharge Plan Patient/Caregiver Discharge Instructions Activity: increase activity as tolerated Diet: Cardiac Instructions: Heart Failure (GEN) Activity Restrictions/Additional Instructions: Follow-up PCP in [5] days Follow-up with cardiology Dr. Lonnie Rhodes earliest possible appointment. I recommend primary care physician to check CBC BMP UA as a posthospital follow- up in 1 week. Daily weights measurements Take additional dose of Lasix for 3 days if weight gain over 2-4 pounds over baseline or worsening SOB and call cardiology office/PCP if inadequate response to diuretics. Continue directed therapies including PT OT on discharge as advised. ST eval and treatment if indicated High protein calorie supplements All meals on chair sitting upright at 90 degrees to prevent aspiration Return to ER if concerning symptoms noted including worsening shortness of breath, chest pain noted Continue low-salt diet and activity as advised Discussed importance of medication adherence Please review medication list with patient prior to discharge Please schedule follow-up with PCP/Providers prior to discharge and provide printouts This discharge packet is provided to you to help keep you informed about your care. We want to ensure you get everything you need when you go home. You will also be receiving a call from us in a few days to follow up with you and see how you are doing since your discharge. This gives us a chance to listen to any concerns you maybe experiencing since you were discharged or any additional needs you may have, as well as providing us feedback on your care experience. We strive to always provide excellent care and thank you for your feedback and for choosing [facility]. Prescriptions: New furosemide 40 mg Tablet 40 mg PO DAILY Qty: 60 RF: 0 potassium chloride 10 mEq Tablet Extended Release 10 meq PO QAMCC Qty: 60 RF: 0 Continued duloxetine 30 mg capsule,delayed release(DR/EC) 60 mg PO QDAY Qty: 60 RF: 3 cevimeline 30 mg capsule 1 cap PO TID Qty: 90 RF: 2 diclofenac sodium 1 % gel See Rx Instructions .ROUTE .COMPLEX Qty: 100 RF: 0 multivitamin 1 tab PO QDAY RF: 0 levothyroxine 125 mcg capsule 137 mcg PO QDAY RF: 0 metoprolol succinate 50 mg tablet extended release 24 hr 50 mg PO BID RF: 0 omeprazole 20 mg capsule,delayed release(DR/EC) 20 mg PO QDAY RF: 0 ondansetron HCl [Zofran] 8 mg tablet 8 mg PO Q8H PRN (Reason: nausea and vomiting) Qty: 10 RF: 0 furosemide 20 mg tablet 20 mg PO DAILY RF: 0 hydroxychloroquine 200 mg tablet 200 mg PO BID RF: 0 melatonin 10 mg Tablet 10 mg PO HS PRN (Reason: Insomnia) RF: 0 potassium chloride 10 mEq Tablet Extended Release 10 meq PO QDAY RF: 0 eletriptan 20 mg Tablet 20 mg PO PRN MDD 4 PRN (Reason: Migraine Headache) RF: 0 metoclopramide HCl 10 mg Tablet 10 mg PO BID RF: 0 valacyclovir 1 gram Tablet 2,000 mg PO QDAY PRN (Reason: Cold Sores) RF: 0 albuterol sulfate [Ventolin HFA] 90 mcg/actuation Hfa Aerosol Inhaler 2 puff INHALATION Q4H PRN (Reason: Wheezing) RF: 0 fluticasone propionate 50 mcg/actuation [place],Suspension 2 spray INTRANASAL QHS RF: 0 Follow Up Plan Follow up with: Myra Arias MD [Primary Care Provider] - Lonnie Rhodes DO [Physician] - Patient Disposition: Home, Self-Care Prognosis: Serious Rehab Potential: Fair I certify that the patient requires SNF services: No Overall status at discharge: patient is progressing back to baseline Discharge Orders: Discharge Order (Routine); Ordered 05/07/20 Ordered By: Aditya PAULINO VTE Deep Vein Thrombosis/Pulmonary Embolism Present on Admission: No
[2020-05-07] MEDS ORDERED: PNEUMOCOCCAL 23-VAL P-SAC VAC 0.5 ML SYRINGE IM ONE (10:00)
== END 2020-05-07 11:10 | disposition home or self-care (01) | DRG 291 ==
LOC: ED 00:37 → ICU 04:20
PROVIDERS: ADMIT Internal Medicine; ATTEND Internal Medicine

== ENCOUNTER 2021-07-01 02:10 | Inpatient (IN) ==
--- NOTE | 2021-07-01 02:18 | Emergency Department Note ---
HPI General Chief complaint: Abdominal Pain Stated complaint: ABD pain Time Seen by Provider: 07/01/21 02:16 Source: patient and family Mode of arrival: ambulatory Limitations: no limitations History of Present Illness HPI Narrative: Narrative: The patient is a 65-year-old female who is status post endoscopic ultrasound and endoscopic retrograde cholangiopancreatography. These procedures were done at [facility] by the varsity baseball coach. She is complaining of worsening abdominal pain is concerned for pancreatitis also endorses nausea and vomiting. Related Data Home Medications Medication Instructions Recorded Confirmed multivitamin 1 tab PO QDAY 08/16/15 01/24/21 metoprolol succinate 50 mg 50 mg PO BID 05/25/19 01/24/21 tablet,extended release 24 hr omeprazole 20 mg capsule,delayed 20 mg PO QDAY 05/25/19 01/24/21 release albuterol sulfate [Ventolin HFA] 2 puff INHALATION Q4H PRN 05/06/20 01/24/21 eletriptan 20 mg PO PRN PRN MDD 4 05/06/20 01/24/21 fluticasone propionate 2 spray INTRANASAL QHS 05/06/20 01/24/21 furosemide 20 mg PO DAILY 05/06/20 01/24/21 melatonin 10 mg PO HS PRN 05/06/20 01/24/21 metoclopramide HCl 10 mg PO BID 05/06/20 01/24/21 valacyclovir 2,000 mg PO QDAY PRN 05/06/20 01/24/21 levothyroxine 125 mcg capsule 125 mcg PO QDAY cap 09/27/20 01/24/21 potassium chloride 10 mEq 10 meq PO BID tab 09/27/20 01/24/21 tablet,extended release Previous Rx's Medication Instructions Recorded furosemide 40 mg PO DAILY #60 tab 05/07/20 diclofenac sodium 1 % topical gel See Rx Instructions .ROUTE 05/24/20 .COMPLEX #100 g prednisone 5 mg tablet 5 mg PO QDAY PRN #60 tab 09/27/20 methocarbamol 500 mg tablet See Rx Instructions .ROUTE 01/25/21 .COMPLEX #60 tab hydroxychloroquine 200 mg tablet 200 mg PO BID #60 tab 02/01/21 Allergies Allergy/AdvReac Type Severity Reaction Status Date / Time codeine AdvReac Mild Hives Verified 07/01/21 02:14 gabapentin AdvReac Mild Agitated Verified 07/01/21 02:14 Review of Systems ROS ROS Narrative: Narrative: All systems ED: reviewed and negative except as stated. [facility] Narrative Patient History Narrative: Narrative: Medical/Surgical/Family History All Active Problems (Updated 07/01/21 @ 05:18 by Sami Pitts DO) Hand pain (Chronic) Knee pain (Chronic) Foot pain (Chronic) Polyarticular arthritis (Chronic) Fibromyalgia (Chronic) Hodgkin lymphoma (Chronic) Von Willebrand factor autoantibody present (Chronic) Vertigo (Chronic) Thoracic outlet syndrome (Chronic) Radiculopathy (Chronic) Migraine headache (Chronic) Hypothyroidism (Chronic) Hyperlipidemia (Chronic) History of thoracic outlet syndrome (Chronic) History of thoracotomy (Chronic) History of lymph node biopsy (Chronic) History of appendectomy (Chronic) Hx of tonsillectomy (Chronic) Inflammatory polyarthropathy (Chronic) Generalized osteoarthritis (Chronic) Bursitis (Chronic) Myalgia and myositis (Chronic) Rotator cuff syndrome (Chronic) Sicca syndrome (Chronic) Disorder of skin and subcutaneous tissue (Chronic) Rheumatic disease (Chronic) Rheumatoid arthritis (Acute) Encounter for long-term (current) use of other high-risk medications (Acute) Sjogren's syndrome (Acute) Trochanteric bursitis (Acute) Encounter for long-term current use of other high-risk medications (Acute) Left knee pain (Chronic) Osteoarthritis (Acute) Shingles (Acute) Neck pain (Acute) Polyarthralgia (Acute) Sprain and strain of wrist (Acute) Headache (Acute) Restrictive lung disease (Acute) Asthma exacerbation (Acute) Headache, migraine (Acute) CHF (congestive heart failure) (Acute) Pancreatitis (Acute) Leukocytosis (Acute) Hyponatremia (Acute) VIDHI (acute kidney injury) (Acute) Elevated alkaline phosphatase level (Acute) Medical History (Updated 07/01/21 @ 05:18 by Sami Pitts DO) Breast implant in situ Bursitis De Quervain's syndrome (tenosynovitis) Disorder of skin and subcutaneous tissue Encounter for long-term (current) use of other high-risk medications Encounter for long-term current use of other high-risk medications Fibromyalgia Foot pain Generalized osteoarthritis Hand pain Headache Hodgkin lymphoma Hyperlipidemia Hypothyroidism Inflammatory polyarthropathy Knee pain Left knee pain Migraine headache Myalgia and myositis Neck pain Osteoarthritis Polyarthralgia Polyarticular arthritis Radiculopathy Restrictive lung disease Rheumatic disease Rheumatoid arthritis Rotator cuff syndrome Shingles Sicca syndrome Sjogren's syndrome Thoracic outlet syndrome Trochanteric bursitis Vertigo Von Willebrand factor autoantibody present Surgical History History of appendectomy 1972 History of lymph node biopsy 1996 History of thoracic outlet syndrome 2008 History of thoracotomy 1998 Hx of tonsillectomy 1972 Family History Grandmother Asthma Mother Malignant neoplasm Daughter Non-specific colitis Father Hypertension Brother Cerebrovascular accident (CVA) Sister Malignant neoplasm Social History Smoking Status: Never smoker Alcohol Intake Frequency: a few times a month Substance Use: does not use Exam Narrative Narrative: Narrative: General Limitations: no limitations General appearance: Present alert Head Head: Present atraumatic and normocephalic Eye Eye: Present normal appearance, PERRL and EOMI ENT ENT: Present normal exam, normal oropharynx and mucous membranes moist Neck Neck: Present normal inspection, full ROM and trachea midline Chest Chest: Present normal inspection and symmetric chest wall rise Respiratory Respiratory: Present normal lung sounds bilaterally Cardiovascular Cardiovascular: Present regular rate and normal rhythm Adbominal Abdominal: Present soft, tenderness, guarding, rebound and hypoactive bowel sounds; Absent rigidity, organomegaly and pulsatile mass Rectal Rectal: Present deferred Extremities Extremities: Present normal inspection and full ROM; Absent tenderness Back Back: Present normal inspection and full ROM; Absent tenderness Neurological Neurological: Present alert, oriented X3, CN II-XII intact, normal gait, motor sensory deficit and reflexes normal Psychiatric Psychiatric: Present normal affect Skin Skin: Present warm (WNL); Absent rash Course Course Course Narrative: CT scan of the abdomen and pelvis without IV contrast shows an impression of post CBD stent placement with findings compatible with superimposed acute mild pancreatitis. No pseudocyst or abscess. I spoke with the varsity baseball coach at [facility], Dr. Cleo Fischer. She recommends inpatient treatment in our hospital, she does not recommend transfer to [facility]. I spoke with our hospitalist Dr. Mejia who has agreed to evaluate this patient in the emergency department and would like a MRCP to be ordered. Patient will be signed out at shift change to dr. jo. Vital Signs Vital signs: Vital Signs Temperature 97.3 F 07/01/21 02:10 Pulse Rate 101 H 07/01/21 02:10 Respiratory Rate 16 07/01/21 02:10 Blood Pressure 115/100 07/01/21 02:10 Pulse Oximetry (%) 100 07/01/21 02:10 Temperature 97.3 F 07/01/21 02:10 Pulse Rate 81 07/01/21 05:01 Respiratory Rate 16 07/01/21 02:10 Blood Pressure 109/55 07/01/21 05:01 Pulse Oximetry (%) 97 07/01/21 05:01 MDM MDM Narrative Medical decision making narrative: Narrative: Lab Data Result diagrams: 07/01/21 02:58 07/01/21 02:58 Labs: Lab Results 07/01/21 07/01/21 07/01/21 Range/Units 02:57 02:57 02:58 WBC 13.9 H (4.5-11.0) K/mcL RBC 4.00 (3.59-5.38) M/mcL Hgb 13.4 (11.2-15.7) g/dL Hct 37.1 (34.1-44.9) % MCV 92.8 (80.0-100.0) fL MCH 33.5 (26.0-34.0) pg MCHC 36.1 H (31.0-36.0) g/dL RDW 12.0 (11.5-14.5) % Plt Count 338 (140-440) K/mcL MPV 10.1 (7.4-10.4) fL Neut % (Auto) 75.2 (38.0-78.0) % Lymph % (Auto) 12.5 L (15.5-49.0) % [place] % (Auto) 11.9 (1.0-12.0) % Eos % (Auto) 0.2 (0.0-7.0) % Baso % (Auto) 0.2 (0.0-2.0) % Lymph # (Auto) 1.74 (1.50-4.80) K/mcL [place] # (Auto) 1.66 H (0.10-0.90) K/mcL Eos # (Auto) 0.03 (0.00-0.70) K/mcL Baso # (Auto) 0.03 (0.00-0.30) K/mcL Absolute Neutrophils 10.46 H (1.80-8.00) K/mcL PT 13.4 (11.9-14.5) sec INR 1.0 (0.9-1.1) VBG Lactic Acid 1.6 (0.5-2.0) mmol/L Sodium (133-145) mmol/L Potassium (3.3-5.1) mmol/L Chloride (96-108) mmol/L Carbon Dioxide (22-30) mmol/L Anion Gap (8.0-16.0) BUN (8-23) mg/dL Creatinine (0.6-1.1) mg/dL GFR Calculation Glucose (70-105) mg/dL Calcium (8.6-10.4) mg/dL Magnesium (1.6-2.5) mg/dL Total Bilirubin (0.1-1.0) mg/dL AST (<32) U/L ALT (<40) U/L Alkaline Phosphatase (39-117) U/L Total Protein (5.9-8.4) gm/dL Albumin (3.2-5.2) gm/dL Globulin (2.2-3.7) gm/dL Albumin/Globulin Ratio (1.0-2.3) Amylase (28-100) U/L Lipase (7-60) U/L 07/01/21 Range/Units 02:58 WBC (4.5-11.0) K/mcL RBC (3.59-5.38) M/mcL Hgb (11.2-15.7) g/dL Hct (34.1-44.9) % MCV (80.0-100.0) fL MCH (26.0-34.0) pg MCHC (31.0-36.0) g/dL RDW (11.5-14.5) % Plt Count (140-440) K/mcL MPV (7.4-10.4) fL Neut % (Auto) (38.0-78.0) % Lymph % (Auto) (15.5-49.0) % [place] % (Auto) (1.0-12.0) % Eos % (Auto) (0.0-7.0) % Baso % (Auto) (0.0-2.0) % Lymph # (Auto) (1.50-4.80) K/mcL [place] # (Auto) (0.10-0.90) K/mcL Eos # (Auto) (0.00-0.70) K/mcL Baso # (Auto) (0.00-0.30) K/mcL Absolute Neutrophils (1.80-8.00) K/mcL PT (11.9-14.5) sec INR (0.9-1.1) VBG Lactic Acid (0.5-2.0) mmol/L Sodium 126 L (133-145) mmol/L Potassium 3.3 (3.3-5.1) mmol/L Chloride 87 L (96-108) mmol/L Carbon Dioxide 20 L (22-30) mmol/L Anion Gap 19.0 H (8.0-16.0) BUN 16 (8-23) mg/dL Creatinine 1.2 H (0.6-1.1) mg/dL GFR Calculation 48 Glucose 98 (70-105) mg/dL Calcium 9.4 (8.6-10.4) mg/dL Magnesium 2.3 (1.6-2.5) mg/dL Total Bilirubin 0.8 (0.1-1.0) mg/dL AST 29 (<32) U/L ALT 75 H (<40) U/L Alkaline Phosphatase 706 H (39-117) U/L Total Protein 7.4 (5.9-8.4) gm/dL Albumin 4.1 (3.2-5.2) gm/dL Globulin 3.3 (2.2-3.7) gm/dL Albumin/Globulin Ratio 1.2 (1.0-2.3) Amylase 20 L (28-100) U/L Lipase 26 (7-60) U/L ED POC Tests ED POC Tests: BERNARDINO - SARS Antigen Negative Discharge Plan Patient/Caregiver Discharge Instructions Pt seen by FINISH MILL OPERATOR/PA only: No Clinical Impression: Hyponatremia, VIDHI (acute kidney injury), Elevated alkaline phosphatase level Pancreatitis Qualifiers: Chronicity: acute Pancreatitis type: unspecified pancreatitis type Acute pa ncreatitis complication: unspecified Qualified Code(s): K85.90 - Acute pancreatitis without necrosis or infection, unspecified Leukocytosis Qualifiers: Leukocytosis type: unspecified Qualified Code(s): D72.829 - Elevated white blood cell count, unspecified Patient Disposition: Still a Patient Condition: Serious Follow up with: Myra Arias MD [Primary Care Provider] - Prescriptions: No Action hydroxychloroquine 200 mg tablet 200 mg PO BID Qty: 60 RF: 5 multivitamin 1 tab PO QDAY RF: 0 levothyroxine 125 mcg capsule 125 mcg PO QDAY RF: 0 metoprolol succinate 50 mg tablet extended release 24 hr 50 mg PO BID RF: 0 omeprazole 20 mg capsule,delayed release(DR/EC) 20 mg PO QDAY RF: 0 diclofenac sodium 1 % gel See Rx Instructions .ROUTE .COMPLEX Qty: 100 RF: 0 potassium chloride 10 mEq tablet extended release 10 meq PO BID RF: 0 prednisone 5 mg tablet 5 mg PO QDAY PRN (Reason: joint pain/swelling) Qty: 60 RF: 0 methocarbamol 500 mg tablet See Rx Instructions .ROUTE .COMPLEX Qty: 60 RF: 0 furosemide 20 mg tablet 20 mg PO DAILY RF: 0 melatonin 10 mg Tablet 10 mg PO HS PRN (Reason: Insomnia) RF: 0 eletriptan 20 mg Tablet 20 mg PO PRN MDD 4 PRN (Reason: Migraine Headache) RF: 0 metoclopramide HCl 10 mg Tablet 10 mg PO BID RF: 0 valacyclovir 1 gram Tablet 2,000 mg PO QDAY PRN (Reason: Cold Sores) RF: 0 albuterol sulfate [Ventolin HFA] 90 mcg/actuation Hfa Aerosol Inhaler 2 puff INHALATION Q4H PRN (Reason: Wheezing) RF: 0 fluticasone propionate 50 mcg/actuation [place],Suspension 2 spray INTRANASAL QHS RF: 0 furosemide 40 mg Tablet 40 mg PO DAILY Qty: 60 RF: 0
[2021-07-01] MEDS ORDERED: ONDANSETRON 4 MG/2 ML VIAL IV ONE (02:29)
[2021-07-01] MEDS ORDERED: 0.9 % SODIUM CHLORIDE 1,000 ML IV ONE (02:29)
[2021-07-01] MEDS ORDERED: HYDROmorphone 0.5 MG/0.5 ML SYRINGE IV ONE (02:31)
[2021-07-01] MEDS ORDERED: PROMETHAZINE 25 MG/ML VIAL IV ONE (03:23)
[2021-07-01 03:44] LABS: Prothrombin Time 13.4 sec (11.9-14.5)
[2021-07-01 04:01] LABS: ALT/SGPT 75 U/L (<40); AST/SGOT 29 U/L (<32); Albumin 4.1 gm/dL (3.2-5.2); Albumin/Globulin Ratio 1.2 (1.0-2.3); Alkaline Phosphatase 706 U/L (39-117); Amylase 20 U/L (28-100); Bilirubin,Total 0.8 mg/dL (0.1-1.0); Blood Urea Nitrogen 16 mg/dL (8-23); Calcium 9.4 mg/dL (8.6-10.4); Carbon Dioxide 20 mmol/L (22-30); Chloride 87 mmol/L (96-108); Globulin 3.3 gm/dL (2.2-3.7); Glomerular Filtration Rate 48; Glucose 98 mg/dL (70-105)
[2021-07-01 04:07] LABS: Basophils # (Auto) 0.03 K/mcL (0.00-0.30); Basophils % (Auto) 0.2 % (0.0-2.0); Eosinophils # (Auto) 0.03 K/mcL (0.00-0.70); Eosinophils % (Auto) 0.2 % (0.0-7.0); Hematocrit 37.1 % (34.1-44.9); Hemoglobin 13.4 g/dL (11.2-15.7); Lymphocytes # (Auto) 1.74 K/mcL (1.50-4.80); Lymphocytes % (Auto) 12.5 % (15.5-49.0); Mean Cell Volume 92.8 fL (80.0-100.0); Mean Corpuscular HGB Conc 36.1 g/dL (31.0-36.0); Mean Platelet Volume 10.1 fL (7.4-10.4); Monocytes # (Auto) 1.66 K/mcL (0.10-0.90); Monocytes % (Auto) 11.9 % (1.0-12.0); Neutrophils % (Auto) 75.2 % (38.0-78.0); Platelet Count 338 K/mcL (140-440); WBC 13.9 K/mcL (4.5-11.0)
[2021-07-01] MEDS ORDERED: PIPERACILLIN SODIUM/TAZOBACTAM 3.375 GM in DEXTROSE 5% IN WATER 50 ML IV ONE (05:12)
[2021-07-01] MEDS ORDERED: ONDANSETRON 4 MG/2 ML VIAL IV PRN (05:13)
[2021-07-01] MEDS ORDERED: 0.9 % SODIUM CHLORIDE 1,000 ML IV SCH ×2 (05:15→09:52)
[2021-07-01] MEDS: 0.9 % SODIUM CHLORIDE 10 ML SYRINGE IV SCH ×3 (06:29→20:20)
--- NOTE | 2021-07-01 07:07 | Cat Scan Report ---
INDICATION: abd pain. Status post common bile duct stent placement. Abdominal pain. COMPARISON: Previous CT scans dated 06/07/2021 and 11/24/2020. TECHNIQUE: Axial images were obtained through the abdomen and pelvis. Sagittally and coronally reformatted images. Intravenous contrast material was not administered. FINDINGS: Examination was initially interpreted by [facility] Lung bases:No pulmonary parenchymal density. No calcified or noncalcified nodule. No pleural or pericardial effusion. Breast implants are noted Liver:Negative to the limits of noncontrast enhanced examination. Liver contour is smooth without evidence for cirrhosis. No detectable focal mass Gallbladder, bilary:Previous cholecystectomy. Patient has a history of bile duct dilatation. Patient is status post placement of a common bile duct stent. This was done at an outside institution. There is a metallic stent consistent with common bile duct stent. Proximal portion of the stent is at approximately the junction of the common hepatic duct and common bile duct. There is pneumobilia. There is amorphous soft tissue density surrounding this stent. Duodenum is not opacified. Spleen:No splenomegaly Pancreas:Pancreatic body and tail are normal. Pancreatic head is amorphous and not well visualized on this noncontrast enhanced examination. A well-defined discrete mass is not identified. There is peripancreatic inflammatory change consistent with pancreatitis. There is no pseudocyst. Pancreatic duct is not dilated. Adrenal glands:Negative Kidneys, ureters, bladder:No obstructing or nonobstructing renal calculi. No hydronephrosis. No renal mass No hydroureter. No ureteral stone No bladder calculus Gastrointestinal:No significant diverticulosis or evidence for diverticulitis. No detectable colonic mass No mechanical small bowel obstruction. No small bowel dilatation. Appendix: The appendix is not visualized. No evidence for appendicitis Vascular:There is calcification of the abdominal aorta. No abdominal aortic aneurysm. There is calcification at the origin of the celiac trunk and superior mesenteric artery. Lymphatic:No retroperitoneal adenopathy. No significant mesenteric adenopathy. Mesentery, peritoneum:No free intraperitoneal fluid. No intra-abdominal abscess. No pneumoperitoneum Reproductive:Uterus is anteflexed. No adnexal mass Musculoskeletal:No lumbar compression fractures. No lytic lesions. Sacrum, pelvis, hips are negative. There is a powerpack and spinal cord stimulator No anterior abdominal wall or inguinal hernia. IMPRESSION: 1. Status post placement of common bile duct stent. There is pneumobilia 2. Mild peripancreatic inflammatory change consistent with pancreatitis. Definite pancreatic mass is not identified on this noncontrast enhanced examination The exam was performed using radiation dose optimization techniques including, but not limited to, automated exposure control, adjustment of the mA and/or kV according to patient size and use of iterative reconstruction technique. Interpreted and Authenticated by: Mac De La Torre 07/01/21
--- NOTE | 2021-07-01 08:58 | Emergency Department Note ---
Abdominal Pain HPI General Chief Complaint: Abdominal Pain Stated Complaint: ABD pain Time Seen by Provider: 07/01/21 02:16 Source: patient and family Mode of arrival: ambulatory Limitations: no limitations History of Present Illness HPI Narrative: Narrative: Patient received on signout Related Data Home Medications Medication Instructions Recorded Confirmed multivitamin 1 tab PO QDAY 08/16/15 01/24/21 metoprolol succinate 50 mg 50 mg PO BID 05/25/19 01/24/21 tablet,extended release 24 hr omeprazole 20 mg capsule,delayed 20 mg PO QDAY 05/25/19 01/24/21 release albuterol sulfate [Ventolin HFA] 2 puff INHALATION Q4H PRN 05/06/20 01/24/21 eletriptan 20 mg PO PRN PRN MDD 4 05/06/20 01/24/21 fluticasone propionate 2 spray INTRANASAL QHS 05/06/20 01/24/21 furosemide 20 mg PO DAILY 05/06/20 01/24/21 melatonin 10 mg PO HS PRN 05/06/20 01/24/21 metoclopramide HCl 10 mg PO BID 05/06/20 01/24/21 valacyclovir 2,000 mg PO QDAY PRN 05/06/20 01/24/21 levothyroxine 125 mcg capsule 125 mcg PO QDAY cap 09/27/20 01/24/21 potassium chloride 10 mEq 10 meq PO BID tab 09/27/20 01/24/21 tablet,extended release Previous Rx's Medication Instructions Recorded furosemide 40 mg PO DAILY #60 tab 05/07/20 diclofenac sodium 1 % topical gel See Rx Instructions .ROUTE 05/24/20 .COMPLEX #100 g prednisone 5 mg tablet 5 mg PO QDAY PRN #60 tab 09/27/20 methocarbamol 500 mg tablet See Rx Instructions .ROUTE 01/25/21 .COMPLEX #60 tab hydroxychloroquine 200 mg tablet 200 mg PO BID #60 tab 02/01/21 Allergies Allergy/AdvReac Type Severity Reaction Status Date / Time codeine AdvReac Mild Hives Verified 07/01/21 02:14 gabapentin AdvReac Mild Agitated Verified 07/01/21 02:14 Review of Systems ROS ROS Narrative: Narrative: PFSH Narrative Patient History Narrative: Narrative: Medical/Surgical/Family History All Active Problems (Updated 07/01/21 @ 05:18 by Sami Pitts DO) Hand pain (Chronic) Knee pain (Chronic) Foot pain (Chronic) Polyarticular arthritis (Chronic) Fibromyalgia (Chronic) Hodgkin lymphoma (Chronic) Von Willebrand factor autoantibody present (Chronic) Vertigo (Chronic) Thoracic outlet syndrome (Chronic) Radiculopathy (Chronic) Migraine headache (Chronic) Hypothyroidism (Chronic) Hyperlipidemia (Chronic) History of thoracic outlet syndrome (Chronic) History of thoracotomy (Chronic) History of lymph node biopsy (Chronic) History of appendectomy (Chronic) Hx of tonsillectomy (Chronic) Inflammatory polyarthropathy (Chronic) Generalized osteoarthritis (Chronic) Bursitis (Chronic) Myalgia and myositis (Chronic) Rotator cuff syndrome (Chronic) Sicca syndrome (Chronic) Disorder of skin and subcutaneous tissue (Chronic) Rheumatic disease (Chronic) Rheumatoid arthritis (Acute) Encounter for long-term (current) use of other high-risk medications (Acute) Sjogren's syndrome (Acute) Trochanteric bursitis (Acute) Encounter for long-term current use of other high-risk medications (Acute) Left knee pain (Chronic) Osteoarthritis (Acute) Shingles (Acute) Neck pain (Acute) Polyarthralgia (Acute) Sprain and strain of wrist (Acute) Headache (Acute) Restrictive lung disease (Acute) Asthma exacerbation (Acute) Headache, migraine (Acute) CHF (congestive heart failure) (Acute) Pancreatitis (Acute) Leukocytosis (Acute) Hyponatremia (Acute) VIDHI (acute kidney injury) (Acute) Elevated alkaline phosphatase level (Acute) Medical History (Updated 07/01/21 @ 05:18 by Sami Pitts DO) Breast implant in situ Bursitis De Quervain's syndrome (tenosynovitis) Disorder of skin and subcutaneous tissue Encounter for long-term (current) use of other high-risk medications Encounter for long-term current use of other high-risk medications Fibromyalgia Foot pain Generalized osteoarthritis Hand pain Headache Hodgkin lymphoma Hyperlipidemia Hypothyroidism Inflammatory polyarthropathy Knee pain Left knee pain Migraine headache Myalgia and myositis Neck pain Osteoarthritis Polyarthralgia Polyarticular arthritis Radiculopathy Restrictive lung disease Rheumatic disease Rheumatoid arthritis Rotator cuff syndrome Shingles Sicca syndrome Sjogren's syndrome Thoracic outlet syndrome Trochanteric bursitis Vertigo Von Willebrand factor autoantibody present Surgical History History of appendectomy 1971 History of lymph node biopsy 1996 History of thoracic outlet syndrome 2007 History of thoracotomy 1998 Hx of tonsillectomy 1972 Family History Grandmother Asthma Mother Malignant neoplasm Daughter Non-specific colitis Father Hypertension Brother Cerebrovascular accident (CVA) Sister Malignant neoplasm Social History Smoking Status: Never smoker Alcohol Intake Frequency: a few times a month Substance Use: does not use Exam Narrative Narrative: Narrative: General Limitations: no limitations Course Vital Signs Vital signs: Vital Signs Temperature 97.3 F 07/01/21 02:10 Pulse Rate 101 H 07/01/21 02:10 Respiratory Rate 16 07/01/21 02:10 Blood Pressure 115/100 07/01/21 02:10 Pulse Oximetry (%) 100 07/01/21 02:10 Temperature 97.3 F 07/01/21 08:40 Pulse Rate 77 07/01/21 08:40 Respiratory Rate 16 07/01/21 08:40 Blood Pressure 105/49 07/01/21 08:40 Pulse Oximetry (%) 96 07/01/21 08:40 MDM MDM Narrative Medical decision making narrative: Narrative: Unable to obtain MRCP due to stimulator. Spoke with on-call hospitalist. Discussed MRI. Patient be admitted to hospitalist service. Patient rested comfortably. Lab Data Result diagrams: 07/01/21 02:58 07/01/21 02:58 Labs: Lab Results 07/01/21 07/01/21 07/01/21 Range/Units 02:57 02:57 02:58 WBC 13.9 H (4.5-11.0) K/mcL RBC 4.00 (3.59-5.38) M/mcL Hgb 13.4 (11.2-15.7) g/dL Hct 37.1 (34.1-44.9) % MCV 92.8 (80.0-100.0) fL MCH 33.5 (26.0-34.0) pg MCHC 36.1 H (31.0-36.0) g/dL RDW 12.0 (11.5-14.5) % Plt Count 338 (140-440) K/mcL MPV 10.1 (7.4-10.4) fL Neut % (Auto) 75.2 (38.0-78.0) % Lymph % (Auto) 12.5 L (15.5-49.0) % [place] % (Auto) 11.9 (1.0-12.0) % Eos % (Auto) 0.2 (0.0-7.0) % Baso % (Auto) 0.2 (0.0-2.0) % Lymph # (Auto) 1.74 (1.50-4.80) K/mcL [place] # (Auto) 1.66 H (0.10-0.90) K/mcL Eos # (Auto) 0.03 (0.00-0.70) K/mcL Baso # (Auto) 0.03 (0.00-0.30) K/mcL Absolute Neutrophils 10.46 H (1.80-8.00) K/mcL PT 13.4 (11.9-14.5) sec INR 1.0 (0.9-1.1) VBG Lactic Acid 1.6 (0.5-2.0) mmol/L Sodium (133-145) mmol/L Potassium (3.3-5.1) mmol/L Chloride (96-108) mmol/L Carbon Dioxide (22-30) mmol/L Anion Gap (8.0-16.0) BUN (8-23) mg/dL Creatinine (0.6-1.1) mg/dL GFR Calculation Glucose (70-105) mg/dL Calcium (8.6-10.4) mg/dL Magnesium (1.6-2.5) mg/dL Total Bilirubin (0.1-1.0) mg/dL AST (<32) U/L ALT (<40) U/L Alkaline Phosphatase (39-117) U/L Total Protein (5.9-8.4) gm/dL Albumin (3.2-5.2) gm/dL Globulin (2.2-3.7) gm/dL Albumin/Globulin Ratio (1.0-2.3) Amylase (28-100) U/L Lipase (7-60) U/L 07/01/21 Range/Units 02:58 WBC (4.5-11.0) K/mcL RBC (3.59-5.38) M/mcL Hgb (11.2-15.7) g/dL Hct (34.1-44.9) % MCV (80.0-100.0) fL MCH (26.0-34.0) pg MCHC (31.0-36.0) g/dL RDW (11.5-14.5) % Plt Count (140-440) K/mcL MPV (7.4-10.4) fL Neut % (Auto) (38.0-78.0) % Lymph % (Auto) (15.5-49.0) % [place] % (Auto) (1.0-12.0) % Eos % (Auto) (0.0-7.0) % Baso % (Auto) (0.0-2.0) % Lymph # (Auto) (1.50-4.80) K/mcL [place] # (Auto) (0.10-0.90) K/mcL Eos # (Auto) (0.00-0.70) K/mcL Baso # (Auto) (0.00-0.30) K/mcL Absolute Neutrophils (1.80-8.00) K/mcL PT (11.9-14.5) sec INR (0.9-1.1) VBG Lactic Acid (0.5-2.0) mmol/L Sodium 126 L (133-145) mmol/L Potassium 3.3 (3.3-5.1) mmol/L Chloride 87 L (96-108) mmol/L Carbon Dioxide 20 L (22-30) mmol/L Anion Gap 19.0 H (8.0-16.0) BUN 16 (8-23) mg/dL Creatinine 1.2 H (0.6-1.1) mg/dL GFR Calculation 48 Glucose 98 (70-105) mg/dL Calcium 9.4 (8.6-10.4) mg/dL Magnesium 2.3 (1.6-2.5) mg/dL Total Bilirubin 0.8 (0.1-1.0) mg/dL AST 29 (<32) U/L ALT 75 H (<40) U/L Alkaline Phosphatase 706 H (39-117) U/L Total Protein 7.4 (5.9-8.4) gm/dL Albumin 4.1 (3.2-5.2) gm/dL Globulin 3.3 (2.2-3.7) gm/dL Albumin/Globulin Ratio 1.2 (1.0-2.3) Amylase 20 L (28-100) U/L Lipase 26 (7-60) U/L ED POC Tests ED POC Tests: BERNARDINO - SARS Antigen Negative Discharge Plan Patient/Caregiver Discharge Instructions Pt seen by [facility]/PA only: No Clinical Impression: Hyponatremia, VIDHI (acute kidney injury), Elevated alkaline phosphatase level Pancreatitis Qualifiers: Chronicity: acute Pancreatitis type: unspecified pancreatitis type Acute pancreatitis complication: unspecified Qualified Code(s): K85.90 - Acute pancreatitis without necrosis or infection, unspecified Leukocytosis Qualifiers: Leukocytosis type: unspecified Qualified Code(s): D72.829 - Elevated white blood cell count, unspecified Patient Disposition: Still a Patient Condition: Serious Discharge Date/Time: 07/01/21 08:50
[2021-07-01] MEDS: DOCUSATE SODIUM 100 MG CAPSULE PO SCH ×2 (09:27→21:41)
[2021-07-01] MEDS: HYDROmorphone 0.5 MG/0.5 ML SYRINGE IV PRN ×4 (09:27→21:48)
--- NOTE | 2021-07-01 09:41 | Internal Med History&Physical ---
HPI History of Present Illness Patient information: Note initiated : 07/01/21 at 9:35 am Service Date, if different from initiated Date: [] Patient: Selena Kenny a 65 y/o F admitted on 07/01/21 for ABD pain. Chief Complaint: [] History of present illness: Ms. Kenny is a 65 year old F Who recently underwent ERCP with stent placement in the common bile duct at [facility] now presents the ED with worsening abdominal pain and nausea vomiting. Vital signs are stable white blood cell count was mildly elevated. Amylase lipase were within normal limits. Mild hyponatremia. CT abdomen pelvis showed a stent in the common bile duct and some mild p eripancreatic inflammation consistent with pancreatitis, no mass was identified. Case was discussed with Ja interventional technologist who felt patient could be managed down here. Review of Systems: Pertinent positives as above. Denies headache/fever/chills/chest pain/cough/dyspnea/diarrhea. Remaining 10 point review of system reviewed negative PFSH PFSH All Active Problems (Updated 07/01/21 @ 05:18 by Sami Pitts DO) Hand pain (Chronic) Knee pain (Chronic) Foot pain (Chronic) Polyarticular arthritis (Chronic) Fibromyalgia (Chronic) Hodgkin lymphoma (Chronic) Von Willebrand factor autoantibody present (Chronic) Vertigo (Chronic) Thoracic outlet syndrome (Chronic) Radiculopathy (Chronic) Migraine headache (Chronic) Hypothyroidism (Chronic) Hyperlipidemia (Chronic) History of thoracic outlet syndrome (Chronic) History of thoracotomy (Chronic) History of lymph node biopsy (Chronic) History of appendectomy (Chronic) Hx of tonsillectomy (Chronic) Inflammatory polyarthropathy (Chronic) Generalized osteoarthritis (Chronic) Bursitis (Chronic) Myalgia and myositis (Chronic) Rotator cuff syndrome (Chronic) Sicca syndrome (Chronic) Disorder of skin and subcutaneous tissue (Chronic) Rheumatic disease (Chronic) Rheumatoid arthritis (Acute) Encounter for long-term (current) use of other high-risk medications (Acute) Sjogren's syndrome (Acute) Trochanteric bursitis (Acute) Encounter for long-term current use of other high-risk medications (Acute) Left knee pain (Chronic) Osteoarthritis (Acute) Shingles (Acute) Neck pain (Acute) Polyarthralgia (Acute) Sprain and strain of wrist (Acute) Headache (Acute) Restrictive lung disease (Acute) Asthma exacerbation (Acute) Headache, migraine (Acute) CHF (congestive heart failure) (Acute) Pancreatitis (Acute) Leukocytosis (Acute) Hyponatremia (Acute) VIDHI (acute kidney injury) (Acute) Elevated alkaline phosphatase level (Acute) Medical History (Updated 07/01/21 @ 05:18 by Sami Pitts DO) Breast implant in situ Bursitis De Quervain's syndrome (tenosynovitis) Disorder of skin and subcutaneous tissue Encounter for long-term (current) use of other high-risk medications Encounter for long-term current use of other high-risk medications Fibromyalgia Foot pain Generalized osteoarthritis Hand pain Headache Hodgkin lymphoma Hyperlipidemia Hypothyroidism Inflammatory polyarthropathy Knee pain Left knee pain Migraine headache Myalgia and myositis Neck pain Osteoarthritis Polyarthralgia Polyarticular arthritis Radiculopathy Restrictive lung disease Rheumatic disease Rheumatoid arthritis Rotator cuff syndrome Shingles Sicca syndrome Sjogren's syndrome Thoracic outlet syndrome Trochanteric bursitis Vertigo Von Willebrand factor autoantibody present Surgical History History of appendectomy 1971 History of lymph node biopsy 1996 History of thoracic outlet syndrome 2007 History of thoracotomy 1998 Hx of tonsillectomy 1972 Family History Grandmother Asthma Mother Malignant neoplasm Daughter Non-specific colitis Father Hypertension Brother Cerebrovascular accident (CVA) Sister Malignant neoplasm Social History marital status: education level: college occupational status: employed alcohol intake frequency: a few times a month substance use type: does not use MEDS/ALLERGIES Home Medications and Allergies Home Medications Medication Instructions Recorded Confirmed Type multivitamin 1 tab PO QDAY 08/16/15 01/24/21 History metoprolol succinate 50 mg 50 mg PO BID 05/25/19 01/24/21 History tablet,extended release 24 hr omeprazole 20 mg capsule,delayed 20 mg PO QDAY 05/25/19 01/24/21 History release albuterol sulfate [Ventolin HFA] 2 puff INHALATION Q4H PRN 05/06/20 01/24/21 History eletriptan 20 mg PO PRN PRN MDD 4 05/06/20 01/24/21 History fluticasone propionate 2 spray INTRANASAL QHS 05/06/20 01/24/21 History furosemide 20 mg PO DAILY 05/06/20 01/24/21 History melatonin 10 mg PO HS PRN 05/06/20 01/24/21 History metoclopramide HCl 10 mg PO BID 05/06/20 01/24/21 History valacyclovir 2,000 mg PO QDAY PRN 05/06/20 01/24/21 History furosemide 40 mg PO DAILY #60 tab 05/07/20 01/24/21 Rx diclofenac sodium 1 % topical gel See Rx Instructions .ROUTE 05/24/20 01/24/21 Rx .COMPLEX #100 g levothyroxine 125 mcg capsule 125 mcg PO QDAY cap 09/27/20 01/24/21 History potassium chloride 10 mEq 10 meq PO BID tab 09/27/20 01/24/21 History tablet,extended release prednisone 5 mg tablet 5 mg PO QDAY PRN #60 tab 09/27/20 01/24/21 Rx methocarbamol 500 mg tablet See Rx Instructions .ROUTE 01/25/21 01/25/21 Rx .COMPLEX #60 tab hydroxychloroquine 200 mg tablet 200 mg PO BID #60 tab 02/01/21 Rx Allergies Allergy/AdvReac Type Severity Reaction Status Date / Time codeine AdvReac Mild Hives Verified 07/01/21 02:14 gabapentin AdvReac Mild Agitated Verified 07/01/21 02:14 EXAM Constitutional Vitals: Temp Pulse Resp BP Pulse Ox 97.3 F 77 16 105/49 96 07/01/21 08:40 07/01/21 08:40 07/01/21 08:40 07/01/21 08:40 07/01/21 08:40 DATA Data Completed and Pending Labs: Labs from last 24 hours 07/01/21 07/01/21 07/01/21 02:58 02:58 02:57 WBC 13.9 H RBC 4.00 Hgb 13.4 Hct 37.1 MCV 92.8 MCH 33.5 MCHC 36.1 H RDW 12.0 Plt Count 338 MPV 10.1 Neut % (Auto) 75.2 Lymph % (Auto) 12.5 L [place] % (Auto) 11.9 Eos % (Auto) 0.2 Baso % (Auto) 0.2 Lymph # (Auto) 1.74 [place] # (Auto) 1.66 H Eos # (Auto) 0.03 Baso # (Auto) 0.03 Absolute Neutrophils 10.46 H PT INR VBG Lactic Acid 1.6 Sodium 126 L Potassium 3.3 Chloride 87 L Carbon Dioxide 20 L Anion Gap 19.0 H BUN 16 Creatinine 1.2 H GFR Calculation 48 Glucose 98 Calcium 9.4 Magnesium 2.3 Total Bilirubin 0.8 AST 29 ALT 75 H Alkaline Phosphatase 706 H Total Protein 7.4 Albumin 4.1 Globulin 3.3 Albumin/Globulin Ratio 1.2 Amylase 20 L Lipase 26 07/01/21 02:57 WBC RBC Hgb Hct MCV MCH MCHC RDW Plt Count MPV Neut % (Auto) Lymph % (Auto) [place] % (Auto) Eos % (Auto) Baso % (Auto) Lymph # (Auto) [place] # (Auto) Eos # (Auto) Baso # (Auto) Absolute Neutrophils PT 13.4 INR 1.0 VBG Lactic Acid Sodium Potassium Chloride Carbon Dioxide Anion Gap BUN Creatinine GFR Calculation Glucose Calcium Magnesium Total Bilirubin AST ALT Alkaline Phosphatase Total Protein Albumin Globulin Albumin/Globulin Ratio Amylase Lipase A/P Narrative A/P Narrative: A: *ERCP Pancreatitis (procedure done on @ [facility]): -Low Cortland's score *Hyponatremia, chronic component: *h/o systolic (45%)/diastolic (grade I) CHF & Restrictive Cardiomyopathy (from radiation therapy in for Hodgkin's lymphoma): *HTN: on BB *Rheumatoid arthritis/Sjogren's syndrome/fibromyalgia: Follows with Dr. Conklin -on hydoxychloroquine and prednisone prn *Hypothyroidism: *GERD: P: -IVF, will be cautious given her restrictive cardiomyopathy as well as systolic/diastolic dysfxn and tendency for volume overload -monitor I/O's, UOP, -Pain control -Clear liquid diet start tomorrow, advance as tolerated to low fat low residue -Continue BB, hold Lasix today - -ppx: Lovenox/home PPI (switch omeprazole with pantoprazoleg given class 1b association) full code Time Spent With Patient Time: Total time spent is greater than 50% in coordination of care (as documented) at patient's floor/unit and/or counseling patient:
[2021-07-01] MEDS ORDERED: 0.9 % SODIUM CHLORIDE 500 ML IV ONE (09:51)
[2021-07-01] MEDS ORDERED: PROMETHAZINE 25 MG/ML VIAL IV PRN (10:03)
[2021-07-01] MEDS ORDERED: MAGNESIUM SULFATE 2 GM/50 ML BAG IV PRN (10:03)
[2021-07-01] MEDS ORDERED: POTASSIUM CHLORIDE 40 MEQ in DEXTROSE 5% IN WATER 500 ML IV PRN (10:03)
[2021-07-01] MEDS ORDERED: POTASSIUM CHLORIDE 20 MEQ TABLET PO PRN ×2 (10:03)
[2021-07-01] MEDS ORDERED: IPRATROPIUM/ALBUTEROL 3 ML AMPUL.NEB NEB PRN (10:03)
[2021-07-01] MEDS ORDERED: LORazepam 2 MG/ML VIAL IV PRN (10:38)
[2021-07-01] MEDS: 0.9 % SODIUM CHLORIDE 1,000 ML IV SCH ×3 (11:03→21:40)
[2021-07-01] MEDS ORDERED: 0.9 % SODIUM CHLORIDE 10 ML SYRINGE IV SCH ×2 (14:00)
[2021-07-01] MEDS: ONDANSETRON 4 MG/2 ML VIAL IV PRN (17:59)
[2021-07-01] MEDS ORDERED: ELETRIPTAN 20 MG PO PRN (20:03)
[2021-07-01] MEDS ORDERED: SENNOSIDES 1 TABLET PO SCH (21:00)
[2021-07-01] MEDS: HYDROXYCHLOROQUINE 200 MG TABLET PO SCH (21:41)
[2021-07-01] MEDS: SENNOSIDES 1 TABLET PO PRN (22:07)
[2021-07-01] MEDS: MELATONIN 3 MG TABLET PO PRN (22:12)
[2021-07-02] MEDS: HYDROmorphone 0.5 MG/0.5 ML SYRINGE IV PRN ×4 (01:09→14:17)
[2021-07-02] MEDS: METHOCARBAMOL 500 MG TABLET PO PRN ×3 (01:23→21:35)
[2021-07-02] MEDS: 0.9 % SODIUM CHLORIDE 1,000 ML IV SCH (05:42)
[2021-07-02] MEDS: 0.9 % SODIUM CHLORIDE 10 ML SYRINGE IV SCH ×3 (05:43→22:43)
[2021-07-02 06:18] LABS: Basophils # (Auto) 0.02 K/mcL (0.00-0.30); Basophils % (Auto) 0.2 % (0.0-2.0); Eosinophils # (Auto) 0.06 K/mcL (0.00-0.70); Eosinophils % (Auto) 0.6 % (0.0-7.0); Hematocrit 31.5 % (34.1-44.9); Hemoglobin 10.7 g/dL (11.2-15.7); Lymphocytes % (Auto) 12.2 % (15.5-49.0); Mean Cell Volume 96.6 fL (80.0-100.0); Mean Platelet Volume 10.1 fL (7.4-10.4); Monocytes # (Auto) 1.09 K/mcL (0.10-0.90); Platelet Count 316 K/mcL (140-440); RBC 3.26 M/mcL (3.59-5.38); Red Cell Distribution Width 12.3 % (11.5-14.5); WBC 9.9 K/mcL (4.5-11.0)
[2021-07-02 06:34] LABS: ALT/SGPT 47 U/L (<40); AST/SGOT 21 U/L (<32); Albumin 3.4 gm/dL (3.2-5.2); Albumin/Globulin Ratio 1.3 (1.0-2.3); Alkaline Phosphatase 476 U/L (39-117); Amylase 15 U/L (28-100); Bilirubin,Direct 0.2 mg/dL (<0.3); Bilirubin,Total 0.5 mg/dL (0.1-1.0); Blood Urea Nitrogen 10 mg/dL (8-23); Calcium 8.3 mg/dL (8.6-10.4); Carbon Dioxide 17 mmol/L (22-30); Chloride 98 mmol/L (96-108); Globulin 2.7 gm/dL (2.2-3.7); Glomerular Filtration Rate 78; Glucose 52 mg/dL (70-105); Lactate Dehydrogenase 149 U/L (135-225); Phosphorous 2.6 mg/dL (2.5-4.5); Triglycerides 65 mg/dL (<150); Uric Acid 4.4 mg/dL (2.5-8.0)
[2021-07-02] MEDS: ONDANSETRON 4 MG/2 ML VIAL IV PRN (07:33)
[2021-07-02] MEDS: LEVOTHYROXINE 125 MCG TABLET PO SCH (07:45)
--- NOTE | 2021-07-02 08:14 | Internal Med Progress Note ---
SUBJECTIVE Subjective Patient information: Note initiated : 07/02/21 at 8:09 am Service Date, if different from initiated Date: [] Patient: Selena Kenny 65 y/o F admitted on 07/01/21 for ABD pain. Chief Complaint: [] Interval history: History of present illness: Ms. Kenny is a 65 year old F Who recently underwent ERCP with stent placement in the common bile duct at [place] now presents the ED with worsening abdominal pain and nausea vomi ting. Vital signs are stable white blood cell count was mildly elevated. Amylase lipase were within normal limits. Mild hyponatremia. CT abdomen pelvis showed a stent in the common bile duct and some mild peripancreatic inflammation consistent with pancreatitis, no mass was identified. Case was discussed with Ja data analytics analyst who felt patient could be managed down here. 07/02 Patient tolerating clear liquids for breakfast. Feels she is starting get a little fluid overloaded, have stopped the IV fluids. She does feel constipated. Review of Systems: denies headache/fever/chills/nausea/vomiting/chest pain/cough/dyspnea/diarrhea. Otherwise see above. Constitutional Vitals: Vital Signs Temp Pulse Resp BP Pulse Ox 98.2 F 110 H 18 149/69 97 07/02/21 07:21 07/02/21 07:21 07/02/21 07:21 07/02/21 07:21 07/02/21 07:21 Period Temp Pulse Resp BP Sys/Wolfe Pulse Ox Last 24 Hr 97 F-100.2 F 77-110 14-18 105-149/49-73 95-99 Intake and Output 07/01/21 07/02/21 07/02/21 21:59 05:59 13:59 Intake Total 1596 1120 256 Output Total 800 320 Balance 796 800 256 Weight 71.668 kg Intake & Output: Intake & Output 07/01/21 07/02/21 07/02/21 21:59 05:59 13:59 Intake Total 1596 1120 256 Output Total 800 320 Balance 796 800 256 Weight 71.668 kg Intake: IV 1596 1000 256 Sodium Chloride 0.9% 1,000 ml @ 1596 1000 256 125 mls/hr IV .Q8H JONI Rx#: [id number] Oral 0 120 Output: Urine Catheter Amount 800 320 Other: Urine Appearance Clear Clear Straight Clear Urine Color Light Lori Dark Yellow Straight Light Lori Urine Odor Strong Normal Straight Strong Exam: General: Alert, Awake, No acute Distress Eyes/N/T: EOMI, Head/Neck: neck supple, CV: RRR, No murmurs, Pulm: Clear b/l, no wheezing/rhonchi/rales Abd: soft, TTP generalized but primarily upper Quads, decreased BS x4 Ext: no clubbing/cyanosis, mild b/l LE edema Neuro: Alert, no focal deficits, moves all extremities, Skin: warm/dry OBJ DATA Labs CBC & Chem 7: 07/02/21 05:21 07/02/21 05:20 Labs: Abnormal Lab Results 07/02/21 07/02/21 07/01/21 05:21 05:20 02:58 WBC RBC 3.26 L Hgb 10.7 L Hct 31.5 L MCHC Lymph % (Auto) 12.2 L Lymph # (Auto) 1.20 L [place] # (Auto) 1.09 H Absolute Neutrophils Sodium 129 L 126 L Chloride 87 L Carbon Dioxide 17 L 20 L Anion Gap 19.0 H Creatinine 1.2 H Glucose 52 L Calcium 8.3 L GGT 623 H ALT 47 H 75 H Alkaline Phosphatase 476 H 706 H Amylase 15 L 20 L 07/01/21 02:58 WBC 13.9 H RBC Hgb Hct MCHC 36.1 H Lymph % (Auto) 12.5 L Lymph # (Auto) [place] # (Auto) 1.66 H Absolute Neutrophils 10.46 H Sodium Chloride Carbon Dioxide Anion Gap Creatinine Glucose Calcium GGT ALT Alkaline Phosphatase Amylase Meds: Medications Albuterol/Ipratropium (Ipratropium/Albuterol 3 Ml Ampul.Neb) 3 ml NEB Q4HP PRN PRN Reason: Shortness Of Breath Bupropion HCl (Bupropion 150 Mg Tab.Xl.24h) 150 mg PO DAILY [facility] Docusate Sodium (Docusate Sodium 100 Mg Capsule) 100 mg PO BID [facility] Last Admin: 07/01/21 21:41 Dose: 100 mg Documented by: Enoxaparin Sodium (Enoxaparin 40 Mg/0.4 Ml Syringe) 40 mg SQ DAILY [facility] Hydromorphone HCl (Hydromorphone 0.5 Mg/0.5 Ml Syringe) 0.5 mg IV Q2HP PRN; Protocol PRN Reason: Per Pain Protocol Last Admin: 07/02/21 07:33 Dose: 0.5 mg Documented by: Hydroxychloroquine Sulfate (Hydroxychloroquine 200 Mg Tablet) 200 mg PO BID [facility] Last Admin: 07/01/21 21:41 Dose: 200 mg Documented by: Potassium Chloride 40 meq/ (Dextrose) 520 mls @ 130 mls/hr IV UD PRN PRN Reason: Potassium < 3 Magnesium Sulfate (Magnesium Sulfate) 2 gm in 50 mls @ 50 mls/hr IV UD PRN PRN Reason: Magnesium </= 1.6 Levothyroxine Sodium (Levothyroxine 125 Mcg Tablet) 125 mcg PO QAMAC [facility] Last Admin: 07/02/21 07:45 Dose: 125 mcg Documented by: Lorazepam (Lorazepam 2 Mg/Ml Vial) 0.5 mg IV Q4-6HP PRN PRN Reason: ANXIETY/SEDATION Last Admin: 07/01/21 11:03 Dose: 0.5 mg Documented by: Melatonin (Melatonin 3 Mg Tablet) 9 mg PO HSP PRN PRN Reason: Insomnia Last Admin: 07/01/21 22:12 Dose: 9 mg Documented by: Methocarbamol (Methocarbamol 500 Mg Tablet) 500 mg PO DAILYP PRN PRN Reason: Muscle Spasm Last Admin: 07/02/21 01:23 Dose: 500 mg Documented by: Metoprolol Succinate (Metoprolol Succinate 25 Mg Tab.Xl.24h) 25 mg PO DAILY [facility] Ondansetron HCl (Ondansetron 4 Mg/2 Ml Vial) 4 mg IV Q4HP PRN PRN Reason: Nausea And Vomiting Last Admin: 07/02/21 07:33 Dose: 4 mg Documented by: Eletriptan 20 Mg (Tablet) 1 dose PO DAILYP PRN PRN Reason: Migraine Headache Polyethylene Glycol (Polyethylene Glycol 3350 17 Gm Packet) 17 gm PO DAILYP PRN PRN Reason: Constipation Potassium Chloride (Potassium Chloride 20 Meq Tablet) 40 meq PO UD PRN PRN Reason: Potssium is 3-3.5 Potassium Chloride (Potassium Chloride 20 Meq Tablet) 40 meq PO UD PRN PRN Reason: Potassium < 3 Promethazine HCl (Promethazine 25 Mg/Ml Vial) 12.5 mg IV Q6HP PRN PRN Reason: Nausea And Vomiting Last Admin: 07/01/21 14:00 Dose: 12.5 mg Documented by: Senna (Sennosides 1 Tablet) 2 tab PO DAILYP PRN PRN Reason: Constipation Last Admin: 07/01/21 22:07 Dose: 2 tab Documented by: Sodium Chloride (0.9 % Sodium Chloride 10 Ml Syringe) 10 ml IV Q8 JONI Last Admin: 07/02/21 05:43 Dose: Not Given Documented by: A/P Narrative A/P Narrative: A: *ERCP Pancreatitis (procedure done on @ [place]): -Low [place]'s score, leukocytosis resolved *Hyponatremia, chronic component: improved *h/o systolic (45%)/diastolic (grade I) CHF & Restrictive Cardiomyopathy (from radiation therapy in for Hodgkin's lymphoma): *HTN: on BB *Rheumatoid arthritis/Sjogren's syndrome/fibromyalgia: Follows with Dr. Conklin -on hydoxychloroquine and prednisone prn *Hypothyroidism: *GERD: *Depression: on bupropion *Pt states Recent diagnosis of pancreatic cancer at [place]: which was the reason she needed stents by ERCP, no stones. P: -d/c IVF, cautious given her restrictive cardiomyopathy as well as systo lic/diastolic dysfxn and tendency for volume overload -monitor I/O's, UOP, -Pain control -Clear liquid diet today, advance as tolerated to low fat low residue -Continue BB, -records from [place] -ppx: Lovenox/home PPI (switch omeprazole with pantoprazole given class 1b association) full code Time Spent With Patient Time: Total time spent is greater than 50% in coordination of care (as documented) at patient's floor/unit and/or counseling patient: QUALITY Stroke Symptom Onset Unknown: No VTE Deep Vein Thrombosis/Pulmonary Embolism Present on Admission: No
[2021-07-02] MEDS: TORSEMIDE 10 MG TABLET PO SCH (09:13)
[2021-07-02] MEDS: buPROPion 150 MG TAB.XL.24H PO SCH (09:14)
[2021-07-02] MEDS: DOCUSATE SODIUM 100 MG CAPSULE PO SCH ×2 (09:14→22:42)
[2021-07-02] MEDS: METOPROLOL SUCCINATE 25 MG TAB.XL.24H PO SCH (09:14)
[2021-07-02] MEDS: ENOXAPARIN 40 MG/0.4 ML SYRINGE SQ SCH (09:14)
[2021-07-02] MEDS: HYDROXYCHLOROQUINE 200 MG TABLET PO SCH ×2 (09:14→20:31)
[2021-07-02] MEDS: POLYETHYLENE GLYCOL 3350 17 GM PACKET PO PRN (09:22)
--- NOTE | 2021-07-02 10:02 | Discharge Summary ---
Discharge Provider Provider Patient information: Note initiated : 07/02/21 at 10:00 am Service Date, if different from initiated Date: [] Patient: Selena Kenny 65 y/o F admitted on 07/01/21 for ABD pain. Chief Complaint: [] Date of admission: 07/01/21 08:41 Discharge date: 07/04/21 Primary care physician: Myra Arias MD Consults: 07/01/21 Consult to Physician [CONS] Stat Comment: Consulting Provider: Roger Mejia Reason For Exam: Physician to Consult Discharge Meds Discharge Medications Home Medications multivitamin 1 tab PO QDAY 08/16/15 [History Confirmed 07/01/21 Last Taken 05/05/20 08:00] omeprazole 20 mg capsule,delayed release 20 mg PO QDAY 05/25/19 [History Confirmed 07/01/21 Last Taken 05/05/20 08:00] albuterol sulfate [Ventolin HFA] 2 puff INHALATION Q4H PRN 05/06/20 [History Confirmed 07/01/21 Last Taken 05/05/20 20:00] eletriptan 20 mg PO PRN PRN MDD 4 05/06/20 [History Confirmed 07/01/21 Last Taken 05/03/20] melatonin 10 mg PO HS PRN 05/06/20 [History Confirmed 07/01/21 Last Taken Unknown] levothyroxine 125 mcg capsule 125 mcg PO QDAY cap 09/27/20 [History Confirmed 07/01/21 Last Taken 07/01/21 125 mcg] potassium chloride 10 mEq tablet,extended release 10 meq PO BID tab 09/27/20 [History Confirmed 07/01/21 Last Taken Unknown] hydroxychloroquine 200 mg tablet 200 mg PO BID #60 tab 02/01/21 [Rx Confirmed 07/01/21 Last Taken 07/01/21 200 mg] diclofenac sodium 1 ea TOPICAL QDP PRN 07/01/21 [History Confirmed 07/01/21 Last Taken Unknown] methocarbamol 500 mg PO PRN PRN 07/01/21 [History Confirmed 07/01/21 Last Taken Unknown] metoprolol succinate 25 mg PO DAILY 07/01/21 [History Confirmed 07/01/21 Last Taken Unknown] torsemide 30 mg PO DAILY 07/01/21 [History Confirmed 07/01/21 Last Taken Unknown] hydromorphone 2 mg PO Q4HP PRN 07/02/21 [History Confirmed 07/02/21 Last Taken Unknown] lorazepam 0.5 mg PO BID PRN #10 tab 07/04/21 [Rx Last Taken Unknown] COURSE Hospital Course Hospital course: Interval history: History of present illness: Ms. Kenny is a 65 year old F Who recently underwent ERCP with stent placement in the common bile duct at [place] now presents the ED with worsening abdominal pain and nausea vomiting. Vital signs are stable white blood cell count was mildly elevated. Amylase lipase were within normal limits. Mild hyponatremia. CT abdomen pelvis showed a stent in the common bile duct and some mild peripancreatic inflammation consistent with pancreatitis, no mass was identified. Case was discussed with Ja can line operator who felt patient could be managed down here. 10 Patient tolerating clear liquids for breakfast. Feels she is starting get a little fluid overloaded, have stopped the IV fluids. She does feel constipated. Notes from [place] reveal that Dr. Erazo performed ERCP (06/28/2021) and placed a 10 mm x 4 cm biliary stent to open up the stricture in the distal common bile duct caused by the pancreatic mass. Multiple biopsies were taken including of local lymph nodes. A pancreatic duct stent was also placed as pancreatitis prophylaxis. The portal lymph node biopsy was unremarkable but the pancreatic head core biopsy did show pancreatic ductal adenocarcinoma. 07/03 States slept okay or as good as expected in the hospital. No BM yet. Tolerating full liquid diet. 07/04 Patient feeling better abdominal pain much improved. Patient desiring to go home. Patient tolerating full liquid diet. A/P Narrative: A: *ERCP Pancreatitis (procedure done on @ [place]): -Low [place]'s score, leukocytosis resolved *Hyponatremia, chronic component: improved *h/o systolic (45%)/diastolic (grade I) CHF & Restrictive Cardiomyopathy (from radiation therapy in for Hodgkin's lymphoma): *HTN: on BB *Rheumatoid arthritis/Sjogren's syndrome/fibromyalgia: Follows with Dr. Conklin -on hydoxychloroquine and prednisone prn *Hypothyroidism: *GERD: *Depression: on bupropion *Anxiety: prn lorazepam *Recent diagnosis of pancreatic cancer at [place]: which was the reason she needed stents by ERCP, no stones. -Notes from [place] reveal that Dr. Erazo performed ERCP (06/28/2021) and placed a 10 mm x 4 cm biliary stent to open up the stricture in the distal common bile duct caused by the pancreatic mass. Multiple biopsies were taken including of local lymph nodes. A pancreatic duct stent was also placed as pancreatitis prophylaxis. The portal lymph node biopsy was unremarkable but the pancreatic head core biopsy did show pancreatic ductal adenocarcinoma. Discharge diagnosis: ERCP pancreatitis recent pancreatic cancer diagnosis Secondary discharge diagnosis: Hyponatremia history of heart failure and restrictive cardiomyopathy hypertension rheumatoid arthritis fibromyalgia hypothyroidism GERD depression Time Spent with Patient Time attestation: Total time spent providing and/or coordinating discharge services: Time spent: Greater than 30 minutes EXAM Constitutional Vitals: Temp Pulse Resp BP Pulse Ox 98.2 F 110 H 18 149/69 97 07/02/21 07:21 07/02/21 07:21 07/02/21 07:21 07/02/21 07:21 07/02/21 07:21 Discharge Data Data Completed and Pending Labs on day of discharge: Labs from last 24 hours 07/02/21 07/02/21 07/02/21 05:21 05:21 05:20 WBC 9.9 RBC 3.26 L Hgb 10.7 L Hct 31.5 L MCV 96.6 MCH 32.8 MCHC 34.0 RDW 12.3 Plt Count 316 MPV 10.1 Neut % (Auto) 76.0 Lymph % (Auto) 12.2 L [place] % (Auto) 11.0 Eos % (Auto) 0.6 Baso % (Auto) 0.2 Lymph # (Auto) 1.20 L [place] # (Auto) 1.09 H Eos # (Auto) 0.06 Baso # (Auto) 0.02 Absolute Neutrophils 7.50 Sodium 129 L Potassium 4.0 Chloride 98 Carbon Dioxide 17 L Anion Gap 14.0 BUN 10 Creatinine 0.8 GFR Calculation 78 Glucose 52 L Uric Acid 4.4 Calcium 8.3 L Phosphorus 2.6 Magnesium 2.1 Total Bilirubin 0.5 Direct Bilirubin 0.2 GGT 623 H AST 21 ALT 47 H Alkaline Phosphatase 476 H Lactate Dehydrogenase 149 Total Protein 6.1 Albumin 3.4 Globulin 2.7 Albumin/Globulin Ratio 1.3 Triglycerides 65 Amylase 15 L Lipase 11 07/01/21 02:58 WBC RBC Hgb Hct MCV MCH MCHC RDW Plt Count MPV Neut % (Auto) Lymph % (Auto) [place] % (Auto) Eos % (Auto) Baso % (Auto) Lymph # (Auto) [place] # (Auto) Eos # (Auto) Baso # (Auto) Absolute Neutrophils Sodium Potassium Chloride Carbon Dioxide Anion Gap BUN Creatinine GFR Calculation Glucose Uric Acid Calcium Phosphorus Magnesium Total Bilirubin Direct Bilirubin GGT AST ALT Alkaline Phosphatase Lactate Dehydrogenase 180 Total Protein Albumin Globulin Albumin/Globulin Ratio Triglycerides Amylase Lipase Preliminary micro results at discharge 07/01/21 06:25 Blood Culture - Preliminary Blood 07/01/21 06:15 Blood Culture - Preliminary Blood Discharge Plan Patient/Caregiver Discharge Instructions Activity: increase activity as tolerated Diet: Low Fat Activity Restrictions/Additional Instructions: low fat and low residue for the next several days then advance as tolerated. Prescriptions: New lorazepam 0.5 mg tablet 0.5 mg PO BID PRN (Reason: anxiety) Qty: 10 RF: 0 Continued hydroxychloroquine 200 mg tablet 200 mg PO BID Qty: 60 RF: 5 multivitamin 1 tab PO QDAY RF: 0 levothyroxine 125 mcg capsule 125 mcg PO QDAY RF: 0 omeprazole 20 mg capsule,delayed release(DR/EC) 20 mg PO QDAY RF: 0 potassium chloride 10 mEq tablet extended release 10 meq PO BID RF: 0 melatonin 10 mg Tablet 10 mg PO HS PRN (Reason: Insomnia) RF: 0 eletriptan 20 mg Tablet 20 mg PO PRN MDD 4 PRN (Reason: Migraine Headache) RF: 0 albuterol sulfate [Ventolin HFA] 90 mcg/actuation Hfa Aerosol Inhaler 2 puff INHALATION Q4H PRN (Reason: Wheezing) RF: 0 metoprolol succinate 25 mg tablet extended release 24 hr 25 mg PO DAILY RF: 0 methocarbamol 500 mg tablet 500 mg PO PRN PRN (Reason: Muscle Spasm) RF: 0 diclofenac sodium 1 % gel 1 ea topical QDP PRN (Reason: Allergic Symptoms) RF: 0 torsemide 20 mg tablet 30 mg PO DAILY RF: 0 hydromorphone 2 mg tablet 2 mg PO Q4HP PRN (Reason: Pain) RF: 0 Follow Up Plan Follow up with: Myra Arias MD [Primary Care Provider] - Patient Disposition: Home, Self-Care Prognosis: Undetermined Overall status at discharge: patient is progressing back to baseline Discharge Orders: Discharge Order (Routine); Ordered 07/04/21 Ordered By: Roger Mejia [facility] VTE Deep Vein Thrombosis/Pulmonary Embolism Present on Admission: No
[2021-07-02] MEDS: HYDROmorphone 2 MG TABLET PO PRN (18:03)
[2021-07-02] MEDS: MELATONIN 3 MG TABLET PO PRN (21:35)
[2021-07-03] MEDS: HYDROmorphone 2 MG TABLET PO PRN (01:17)
[2021-07-03] MEDS: 0.9 % SODIUM CHLORIDE 10 ML SYRINGE IV SCH ×3 (05:29→22:03)
[2021-07-03] MEDS: LEVOTHYROXINE 125 MCG TABLET PO SCH (06:51)
--- NOTE | 2021-07-03 07:43 | Internal Med Progress Note ---
SUBJECTIVE Subjective Patient information: Note initiated : 07/03/21 at 7:41 am Service Date, if different from initiated Date: [] Patient: Selena Kenny 65 y/o F admitted on 07/01/21 for ABD pain. Chief Complaint: [] Interval history: Interval history: History of present illness: Ms. Kenny is a 65 year old F Who recently underwent ERCP with stent placement in the common bile duct at [place] now presents the ED with worsening abdominal pain and nausea vomiting. Vital signs are stable white blood cell count was mildly elevated. Amylase lipase were within normal limits. Mild hyponatremia. CT abdomen pelvis showed a stent in the common bile duct and some mild peripancreatic inflammation consistent with pancreatitis, no mass was iden tified. Case was discussed with [place] rubber block layer who felt patient could be managed down here. 07/02 Patient tolerating clear liquids for breakfast. Feels she is starting get a little fluid overloaded, have stopped the IV fluids. She does feel constipated. Notes from [place] reveal that Dr. Erazo performed ERCP (06/28/2021) and placed a 10 mm x 4 cm biliary stent to open up the stricture in the distal common bile duct caused by the pancreatic mass. Multiple biopsies were taken i ncluding of local lymph nodes. A pancreatic duct stent was also placed as pancreatitis prophylaxis. The portal lymph node biopsy was unremarkable but the pancreatic head core biopsy did show pancreatic ductal adenocarcinoma. 07/03 States slept okay or as good as expected in the hospital. No BM yet. Tolerating full liquid diet. Review of Systems: denies headache/fever/chills/nausea/vomiting/chest pain/cough/dyspnea/diarrhea. Otherwise see above. Constitutional Vitals: Vital Signs Temp Pulse Resp BP Pulse Ox 98.3 F 88 16 108/48 92 07/03/21 06:59 07/03/21 06:59 07/03/21 06:59 07/03/21 06:59 07/03/21 06:59 Period Temp Pulse Resp BP Sys/Wolfe Pulse Ox Last 24 Hr 97.7 F-99.1 F 88-104 16-20 108-149/48-71 92-98 Intake and Output 07/02/21 07/03/21 07/03/21 21:59 05:59 13:59 Output Total 3100 925 Balance -3100 -925 Weight 70.931 kg Intake & Output: Intake & Output 07/02/21 07/03/21 07/03/21 21:59 05:59 13:59 Output Total 3100 925 Balance -6650 925 Weight 70.931 kg Output: Urine Catheter Amount 3100 925 Other: Meal Dinner Percent of Meal Consumed 75% Feeding Ability Independent Urine Appearance Clear Uretheral (Bone) Clear Urine Color Pale Dark Yellow Uretheral (Bone) Bright Yellow Urine Odor Normal Exam: General: Alert, Awake, No acute Distress Eyes/N/T: EOMI, Head/Neck: neck supple, CV: RRR, No murmurs, Pulm: Clear b/l, no wheezing/rhonchi/rales Abd: soft, TTP generalized but primarily upper Quads, decreased BS x4 Ext: no clubbing/cyanosis, mild b/l LE edema Neuro: Alert, no focal deficits, moves all extremities, Skin: warm/dry OBJ DATA Labs CBC & Chem 7: 07/02/21 05:21 07/02/21 05:20 Labs: Abnormal Lab Results 07/02/21 07/02/21 07/01/21 05:21 05:20 02:58 WBC RBC 3.26 L Hgb 10.7 L Hct 31.5 L MCHC Lymph % (Auto) 12.2 L Lymph # (Auto) 1.20 L [place] # (Auto) 1.09 H Absolute Neutrophils Sodium 129 L 126 L Chloride 87 L Carbon Dioxide 17 L 20 L Anion Gap 19.0 H Creatinine 1.2 H Glucose 52 L Calcium 8.3 L GGT 623 H ALT 47 H 75 H Alkaline Phosphatase 476 H 706 H Amylase 15 L 20 L 07/01/21 02:58 WBC 13.9 H RBC Hgb Hct MCHC 36.1 H Lymph % (Auto) 12.5 L Lymph # (Auto) [place] # (Auto) 1.66 H Absolute Neutrophils 10.46 H Sodium Chloride Carbon Dioxide Anion Gap Creatinine Glucose Calcium GGT ALT Alkaline Phosphatase Amylase Meds: Medications Albuterol/Ipratropium (Ipratropium/Albuterol 3 Ml Ampul.Neb) 3 ml NEB Q4HP PRN PRN Reason: Shortness Of Breath Bupropion HCl (Bupropion 150 Mg Tab.Xl.24h) 150 mg PO DAILY JONI Last Admin: 07/02/21 09:14 Dose: 150 mg Documented by: Docusate Sodium (Docusate Sodium 100 Mg Capsule) 100 mg PO BID [facility] Last Admin: 07/02/21 22:42 Dose: Not Given Documented by: Enoxaparin Sodium (Enoxaparin 40 Mg/0.4 Ml Syringe) 40 mg SQ DAILY [facility] Last Admin: 07/02/21 09:14 Dose: 40 mg Documented by: Hydromorphone HCl (Hydromorphone 0.5 Mg/0.5 Ml Syringe) 0.5 mg IV Q2HP PRN; Protocol PRN Reason: Per Pain Protocol Last Admin: 07/02/21 14:17 Dose: 0.5 mg Documented by: Hydromorphone HCl (Hydromorphone 2 Mg Tablet) 2 mg PO Q4HP PRN; Protocol PRN Reason: Per Pain Protocol Last Admin: 07/03/21 01:17 Dose: 2 mg Documented by: Hydroxychloroquine Sulfate (Hydroxychloroquine 200 Mg Tablet) 200 mg PO BID [facility] Last Admin: 07/02/21 20:31 Dose: 200 mg Documented by: Potassium Chloride 40 meq/ (Dextrose) 520 mls @ 130 mls/hr IV UD PRN PRN Reason: Potassium < 3 Magnesium Sulfate (Magnesium Sulfate) 2 gm in 50 mls @ 50 mls/hr IV UD PRN PRN Reason: Magnesium </= 1.6 Levothyroxine Sodium (Levothyroxine 125 Mcg Tablet) 125 mcg PO QAMAC [facility] Last Admin: 07/03/21 06:51 Dose: 125 mcg Documented by: Lorazepam (Lorazepam 2 Mg/Ml Vial) 0.5 mg IV Q4-6HP PRN PRN Reason: ANXIETY/SEDATION Last Admin: 07/01/21 11:03 Dose: 0.5 mg Documented by: Melatonin (Melatonin 3 Mg Tablet) 9 mg PO HSP PRN PRN Reason: Insomnia Last Admin: 07/02/21 21:35 Dose: 9 mg Documented by: Methocarbamol (Methocarbamol 500 Mg Tablet) 500 mg PO DAILYP PRN PRN Reason: Muscle Spasm Last Admin: 07/02/21 21:35 Dose: 500 mg Documented by: Metoprolol Succinate (Metoprolol Succinate 25 Mg Tab.Xl.24h) 25 mg PO DAILY [facility] Last Admin: 07/02/21 09:14 Dose: 25 mg Documented by: Ondansetron HCl (Ondansetron 4 Mg/2 Ml Vial) 4 mg IV Q4HP PRN PRN Reason: Nausea And Vomiting Last Admin: 07/02/21 07:33 Dose: 4 mg Documented by: Eletriptan 20 Mg (Tablet) 1 dose PO DAILYP PRN PRN Reason: Migraine Headache Polyethylene Glycol (Polyethylene Glycol 3350 17 Gm Packet) 17 gm PO DAILYP PRN PRN Reason: Constipation Last Admin: 07/02/21 09:22 Dose: 17 gm Documented by: Potassium Chloride (Potassium Chloride 20 Meq Tablet) 40 meq PO UD PRN PRN Reason: Potssium is 3-3.5 Potassium Chloride (Potassium Chloride 20 Meq Tablet) 40 meq PO UD PRN PRN Reason: Potassium < 3 Promethazine HCl (Promethazine 25 Mg/Ml Vial) 12.5 mg IV Q6HP PRN PRN Reason: Nausea And Vomiting Last Admin: 07/01/21 14:00 Dose: 12.5 mg Documented by: Senna (Sennosides 1 Tablet) 2 tab PO DAILYP PRN PRN Reason: Constipation Last Admin: 07/01/21 22:07 Dose: 2 tab Documented by: Sodium Chloride (0.9 % Sodium Chloride 10 Ml Syringe) 10 ml IV Q8 [facility] Last Admin: 07/03/21 05:29 Dose: 10 ml Documented by: Torsemide (Torsemide 10 Mg Tablet) 30 mg PO DAILY [facility] Last Admin: 07/02/21 09:13 Dose: 30 mg Documented by: A/P Narrative A/P Narrative: A: *ERCP Pancreatitis (procedure done on @ [place]): -[place]'s score, leukocytosis resolved *Hyponatremia, chronic component: improved *h/o systolic (45%)/diastolic (grade I) CHF & Restrictive Cardiomyopathy (from radiation therapy in for Hodgkin's lymphoma): *HTN: on BB *Rheumatoid arthritis/Sjogren's syndrome/fibromyalgia: Follows with Dr. Conklin -on hydoxychloroquine and prednisone prn *Hypothyroidism: *GERD: *Depression: on bupropion *Recent diagnosis of pancreatic cancer at [place]: which was the reason she needed stents by ERCP, no stones. -Notes from [place] reveal that Dr. Erazo performed ERCP (06/28/2021) and placed a 10 mm x 4 cm biliary stent to open up the stricture in the distal common bile duct caused by the pancreatic mass. Multiple biopsies were taken including of local lymph nodes. A pancreatic duct stent was also placed as pancreatitis prophylaxis. The portal lymph node biopsy was unremarkable but the pancreatic head core biopsy did show pancreatic ductal adenocarcinoma. P: -d/c'd IVF, cautious given her restrictive cardiomyopathy as well as systolic/diastolic dysfxn and tendency for volume overload -monitor I/O's, UOP, -Pain control -full liquid, advance as tolerated to low fat / low residue -Continue BB, -ppx: Lovenox/home PPI (switch omeprazole with pantoprazole given class 1b association) code: cpr ok but no intubation Time Spent With Patient Time: Total time spent is greater than 50% in coordination of care (as documented) at patient's floor/unit and/or counseling patient: QUALITY Stroke Symptom Onset Unknown: No VTE Deep Vein Thrombosis/Pulmonary Embolism Present on Admission: No
[2021-07-03] MEDS: DOCUSATE SODIUM 100 MG CAPSULE PO SCH ×2 (10:18→20:09)
[2021-07-03] MEDS: METOPROLOL SUCCINATE 25 MG TAB.XL.24H PO SCH (10:19)
[2021-07-03] MEDS: SENNOSIDES 1 TABLET PO PRN (10:19)
[2021-07-03] MEDS: buPROPion 150 MG TAB.XL.24H PO SCH ×2 (10:19→10:22)
[2021-07-03] MEDS: TORSEMIDE 10 MG TABLET PO SCH (10:19)
[2021-07-03] MEDS: POLYETHYLENE GLYCOL 3350 17 GM PACKET PO PRN (10:19)
[2021-07-03] MEDS: HYDROXYCHLOROQUINE 200 MG TABLET PO SCH ×2 (10:19→20:09)
[2021-07-03] MEDS: ENOXAPARIN 40 MG/0.4 ML SYRINGE SQ SCH (10:19)
--- NOTE | 2021-07-03 10:29 | EKG ---
[facility] Test Date: 2021-07-02 Pat Name: Selena Kenny Department: [facility] Room: 133 Gender: Female Magnetizer: : [id number] Requested By: Roger Mejia Order Number: [id number] Reading MD: Lion Mccoy Measurements Intervals [place] Rate: 105 P: 59 NV: 164 QRS: 2 QRSD: 126 T: 165 QT: 400 QTc: 529 Interpretive Statements SINUS TACHYCARDIA LEFT BUNDLE BRANCH BLOCK Electronically Signed On 07-03-2021 10:28:30 PDT by Lion Mccoy /store/M0/[id number]
[2021-07-03] MEDS: METHOCARBAMOL 500 MG TABLET PO PRN ×2 (15:05→23:18)
[2021-07-03] MEDS ORDERED: METHYLNALTREXONE BROMIDE 12 MG/0.6 ML SYRINGE SC ONE (17:45)
[2021-07-03] MEDS ORDERED: METHYLNALTREXONE BROMIDE 12 MG/0.6 ML SYRINGE SC SCH (17:45)
[2021-07-03] MEDS: MAGNESIUM HYDROXIDE 30 ML ORAL.SUSP PO PRN ×2 (18:12→22:03)
[2021-07-03] MEDS: MELATONIN 3 MG TABLET PO PRN (23:19)
[2021-07-04] MEDS: 0.9 % SODIUM CHLORIDE 10 ML SYRINGE IV SCH (05:46)
--- NOTE | 2021-07-04 08:04 | Internal Med Progress Note ---
SUBJECTIVE Subjective Patient information: Note initiated : 07/04/21 at 8:02 am Service Date, if different from initiated Date: [] Patient: Selena Kenny 65 y/o F admitted on 07/01/21 for ABD pain. Chief Complaint: [] Interval history: Interval history: History of present illness: Ms. Kenny is a 65 year old F Who recently underwent ERCP with stent placement in the common bile duct at [facility] now presents the ED with worsening abdominal pain and nausea vomiting. Vital signs are stable white blood cell count was mildly elevated. Amylase lipase were within normal limits. Mild hyponatremia. CT abdomen pelvis showed a stent in the common bile duct and some mild peripancreatic inflammation consistent with pancreatitis, no mass was iden tified. Case was discussed with [place] suit attendant who felt patient could be managed down here. 07/02 Patient tolerating clear liquids for breakfast. Feels she is starting get a little fluid overloaded, have stopped the IV fluids. She does feel constipated. Notes from [facility] reveal that Dr. Erazo performed ERCP (06/28/2021) and placed a 10 mm x 4 cm biliary stent to open up the stricture in the distal common bile duct caused by the pancreatic mass. Multiple biopsies were taken i ncluding of local lymph nodes. A pancreatic duct stent was also placed as pancreatitis prophylaxis. The portal lymph node biopsy was unremarkable but the pancreatic head core biopsy did show pancreatic ductal adenocarcinoma. 07/03 States slept okay or as good as expected in the hospital. No BM yet. Tolerating full liquid diet. 07/04 Patient feeling better abdominal pain much improved. Patient desiring to go home. Patient tolerating full liquid diet. Review of Systems: denies headache/fever/chills/nausea/vomiting/chest pain/cough/dyspnea/diarrhea. Otherwise see above. Constitutional Vitals: Vital Signs Temp Pulse Resp BP Pulse Ox 96.5 F L 82 16 116/55 95 07/04/21 07:09 07/04/21 07:09 07/04/21 07:09 07/04/21 07:09 07/04/21 07:09 Period Temp Pulse Resp BP Sys/Wolfe Pulse Ox Last 24 Hr 96.5 F-99.0 F 80-94 16-20 97-128/46-65 95-98 Intake and Output 07/03/21 07/04/21 07/04/21 21:59 05:59 13:59 Intake Total 600 450 Output Total 500 350 Balance 100 100 Weight 69.899 kg Intake & Output: Intake & Output 07/03/21 07/04/21 07/04/21 21:59 05:59 13:59 Intake Total 600 450 Output Total 500 350 Balance 100 100 Weight 69.899 kg Intake: Oral 600 450 Output: Void Amount 500 350 Other: Meal Dinner Percent of Meal Consumed 100% Feeding Ability Independent Urine Appearance Clear Urine Color Straw Bright Yellow Urine Odor Normal Normal OBJ DATA Labs CBC & Chem 7: 07/02/21 05:21 07/02/21 05:20 Labs: Abnormal Lab Results 07/02/21 07/02/21 05:21 05:20 RBC 3.26 L Hgb 10.7 L Hct 31.5 L Lymph % (Auto) 12.2 L Lymph # (Auto) 1.20 L [place] # (Auto) 1.09 H Sodium 129 L Carbon Dioxide 17 L Glucose 52 L Calcium 8.3 L GGT 623 H ALT 47 H Alkaline Phosphatase 476 H Amylase 15 L Meds: Medications Albuterol/Ipratropium (Ipratropium/Albuterol 3 Ml Ampul.Neb) 3 ml NEB Q4HP PRN PRN Reason: Shortness Of Breath Bupropion HCl (Bupropion 150 Mg Tab.Xl.24h) 150 mg PO DAILY [facility] Last Admin: 07/03/21 10:22 Dose: Not Given Documented by: Docusate Sodium (Docusate Sodium 100 Mg Capsule) 100 mg PO BID [facility] Last Admin: 07/03/21 20:09 Dose: 100 mg Documented by: Enoxaparin Sodium (Enoxaparin 40 Mg/0.4 Ml Syringe) 40 mg SQ DAILY [facility] Last Admin: 07/03/21 10:19 Dose: 40 mg Documented by: Hydromorphone HCl (Hydromorphone 0.5 Mg/0.5 Ml Syringe) 0.5 mg IV Q2HP PRN; Protocol PRN Reason: Per Pain Protocol Last Admin: 07/02/21 14:17 Dose: 0.5 mg Documented by: Hydromorphone HCl (Hydromorphone 2 Mg Tablet) 2 mg PO Q4HP PRN; Protocol PRN Reason: Per Pain Protocol Last Admin: 07/03/21 01:17 Dose: 2 mg Documented by: Hydroxychloroquine Sulfate (Hydroxychloroquine 200 Mg Tablet) 200 mg PO BID [facility] Last Admin: 07/03/21 20:09 Dose: 200 mg Documented by: Potassium Chloride 40 meq/ (Dextrose) 520 mls @ 130 mls/hr IV UD PRN PRN Reason: Potassium < 3 Magnesium Sulfate (Magnesium Sulfate) 2 gm in 50 mls @ 50 mls/hr IV UD PRN PRN Reason: Magnesium </= 1.6 Levothyroxine Sodium (Levothyroxine 125 Mcg Tablet) 125 mcg PO QAMAC [facility] Last Admin: 07/03/21 06:51 Dose: 125 mcg Documented by: Lorazepam (Lorazepam 2 Mg/Ml Vial) 0.5 mg IV Q4-6HP PRN PRN Reason: ANXIETY/SEDATION Last Admin: 07/01/21 11:03 Dose: 0.5 mg Documented by: Magnesium Hydroxide (Magnesium Hydroxide 30 Ml Oral.Susp) 30 ml PO DAILYP PRN PRN Reason: Constipation Last Admin: 07/03/21 22:03 Dose: 30 ml Documented by: Melatonin (Melatonin 3 Mg Tablet) 9 mg PO HSP PRN PRN Reason: Insomnia Last Admin: 07/03/21 23:19 Dose: 9 mg Documented by: Methocarbamol (Methocarbamol 500 Mg Tablet) 500 mg PO Q6HP PRN PRN Reason: Muscle Spasm Last Admin: 07/03/21 23:18 Dose: 500 mg Documented by: Metoprolol Succinate (Metoprolol Succinate 25 Mg Tab.Xl.24h) 25 mg PO DAILY [facility] Last Admin: 07/03/21 10:19 Dose: 25 mg Documented by: Ondansetron HCl (Ondansetron 4 Mg/2 Ml Vial) 4 mg IV Q4HP PRN PRN Reason: Nausea And Vomiting Last Admin: 07/02/21 07:33 Dose: 4 mg Documented by: Eletriptan 20 Mg (Tablet) 1 dose PO DAILYP PRN PRN Reason: Migraine Headache Polyethylene Glycol (Polyethylene Glycol 3350 17 Gm Packet) 17 gm PO DAILYP PRN PRN Reason: Constipation Last Admin: 07/03/21 10:19 Dose: 17 gm Documented by: Potassium Chloride (Potassium Chloride 20 Meq Tablet) 40 meq PO UD PRN PRN Reason: Potssium is 3-3.5 Potassium Chloride (Potassium Chloride 20 Meq Tablet) 40 meq PO UD PRN PRN Reason: Potassium < 3 Promethazine HCl (Promethazine 25 Mg/Ml Vial) 12.5 mg IV Q6HP PRN PRN Reason: Nausea And Vomiting Last Admin: 07/01/21 14:00 Dose: 12.5 mg Documented by: Senna (Sennosides 1 Tablet) 2 tab PO DAILYP PRN PRN Reason: Constipation Last Admin: 07/03/21 10:19 Dose: 2 tab Documented by: Sodium Chloride (0.9 % Sodium Chloride 10 Ml Syringe) 10 ml IV Q8 JONI Last Admin: 07/04/21 05:46 Dose: 10 ml Documented by: Torsemide (Torsemide 10 Mg Tablet) 30 mg PO DAILY [facility] Last Admin: 07/03/21 10:19 Dose: 30 mg Documented by: A/P Narrative A/P Narrative: A: *ERCP Pancreatitis (procedure done on @ [facility]): -Low [place]'s score, leukocytosis resolved *Hyponatremia, chronic component: improved *h/o systolic (45%)/diastolic (grade I) CHF & Restrictive Cardiomyopathy (from radiation therapy in for Hodgkin's lymphoma): *HTN: on BB *Rheumatoid arthritis/Sjogren's syndrome/fibromyalgia: Follows with Dr. Conklin -on hydoxychloroquine and prednisone prn *Hypothyroidism: *GERD: *Depression: on bupropion *Anxiety: prn xanax *Recent diagnosis of pancreatic cancer at [place] [facility]: which was the reason she needed stents by ERCP, no stones. -Notes from [facility] reveal that Dr. Erazo performed ERCP (06/28/2021) and placed a 10 mm x 4 cm biliary stent to open up the stricture in the distal common bile duct caused by the pancreatic mass. Multiple biopsies were taken including of local lymph nodes. A pancreatic duct stent was also placed as pancreatitis prophylaxis. The portal lymph node biopsy was unremarkable but the pancreatic head core biopsy did show pancreatic ductal adenocarcinoma. P: -d/c'd IVF, cautious given her restrictive cardiomyopathy as well as systolic/diastolic dysfxn and tendency for volume overload -monitor I/O's, UOP, -Pain control -full liquid, advance as tolerated to low fat / low residue -Continue BB, -ppx: Lovenox/home PPI (switch omeprazole with pantoprazole given class 1b assoc iation) code: cpr ok but no intubation Time Spent With Patient Time: Total time spent is greater than 50% in coordination of care (as documented) at patient's floor/unit and/or counseling patient: QUALITY Stroke Symptom Onset Unknown: No VTE Deep Vein Thrombosis/Pulmonary Embolism Present on Admission: No
[2021-07-04] MEDS: ENOXAPARIN 40 MG/0.4 ML SYRINGE SQ SCH (08:10)
[2021-07-04] MEDS: METHOCARBAMOL 500 MG TABLET PO PRN (08:10)
[2021-07-04] MEDS: LEVOTHYROXINE 125 MCG TABLET PO SCH (08:11)
[2021-07-04] MEDS: HYDROXYCHLOROQUINE 200 MG TABLET PO SCH (08:11)
[2021-07-04] MEDS: SENNOSIDES 1 TABLET PO PRN (08:11)
[2021-07-04] MEDS: METOPROLOL SUCCINATE 25 MG TAB.XL.24H PO SCH (08:11)
[2021-07-04] MEDS: TORSEMIDE 10 MG TABLET PO SCH (08:11)
[2021-07-04] MEDS: buPROPion 150 MG TAB.XL.24H PO SCH (08:12)
[2021-07-04] MEDS: DOCUSATE SODIUM 100 MG CAPSULE PO SCH (08:12)
== END 2021-07-04 11:20 | disposition home or self-care (01) | DRG 919 ==
LOC: ED 02:10 → MEDSUR 08:41
PROVIDERS: ADMIT Internal Medicine; ATTEND Internal Medicine